=== PATIENT | male | born 1940 | race Caucasian/White ===

== ENCOUNTER → 2016-05-07 | Outpatient (CLI) | payer MEDICARE, OTHER ==
[~2016-05-07] MED LIST: ASPI81CH43 GT; CLOP75TA28 PO; PRAV20TA3 PO
== END | disposition home or self-care (01) ==
LOC: Rad HDHVI 08:04
PROVIDERS: ATTEND Internal Medicine Cardiovascular Disease
DX: I25.5 Ischemic cardiomyopathy (principal); I21.19 ST elevation (STEMI) myocardial infarction involving other coronary artery of inferior wall; R06.02 Shortness of breath
CPT/HCPCS: 93306

== ENCOUNTER → 2016-05-12 | Outpatient (CLI) | payer MEDICARE, OTHER ==
[~2016-05-12] MED LIST changes: +ADENOSINE 53 MG in GIVE UN-DILUTED 0 ML IV ONE; +ADENOSINE 90 MG/30 ML INJ IV ONE
== END | disposition home or self-care (01) ==
LOC: Rad HDHVI 07:56
PROVIDERS: ATTEND Internal Medicine Cardiovascular Disease
DX: I10 Essential (primary) hypertension (principal); I25.10 Atherosclerotic heart disease of native coronary artery without angina pectoris; I25.2 Old myocardial infarction; E78.00 Pure hypercholesterolemia, unspecified; R06.02 Shortness of breath; R42 Dizziness and giddiness
CPT/HCPCS: 78452; 93005; 96374; 96375; A9500; J0153

== ENCOUNTER → 2016-06-03 | Outpatient (CLI) | payer MEDICARE, OTHER ==
[~2016-06-03] VITALS: Ht 30.5 cm; Wt 0.5 kg
[~2016-06-03] MED LIST changes: -ADENOSINE 53 MG in GIVE UN-DILUTED 0 ML IV ONE; -ADENOSINE 90 MG/30 ML INJ IV ONE; +IOHEXOL 350 MG/ML 100ML IJ ONE; +SODIUM CHLORIDE 0.9% 250 ML IV SCH
[2016-06-03 10:35] VITALS: BP 118/76
[2016-06-03 12:00] VITALS: BP 124/81
== END | disposition home or self-care (01) ==
LOC: Rad HDHVI 09:44
PROVIDERS: ATTEND Internal Medicine Cardiovascular Disease
DX: R42 Dizziness and giddiness (principal); J44.9 Chronic obstructive pulmonary disease, unspecified; R06.02 Shortness of breath; I25.10 Atherosclerotic heart disease of native coronary artery without angina pectoris; Z87.448 Personal history of other diseases of urinary system
CPT/HCPCS: 71260; 96361; 96374; G0463; Q9967; 96360

== ENCOUNTER → 2017-02-24 | Outpatient (CLI) | payer MEDICARE ==
[~2017-02-24] MED LIST changes: +READI-CAT 2 (BARIUM SULF)(VANILLA SMOOTHIE) 450ML ONE; +SODIUM CHLORIDE 0.9% 1,000 ML IV SCH; -SODIUM CHLORIDE 0.9% 250 ML IV SCH
[2017-02-24 09:00] VITALS: BP 132/77
[2017-02-24 11:15] VITALS: BP 132/86
== END | disposition home or self-care (01) ==
LOC: Rad HDHVI 08:47
PROVIDERS: ATTEND Internal Medicine Cardiovascular Disease
DX: K44.9 Diaphragmatic hernia without obstruction or gangrene (principal); K57.30 Diverticulosis of large intestine without perforation or abscess without bleeding; J43.9 Emphysema, unspecified; K40.90 Unilateral inguinal hernia, without obstruction or gangrene, not specified as recurrent; I77.811 Abdominal aortic ectasia
CPT/HCPCS: 74177; 82565; 96374; G0463; Q9967

== ENCOUNTER → 2017-02-26 | Outpatient (CLI) | payer MEDICARE ==
[~2017-02-26] MED LIST changes: -SODIUM CHLORIDE 0.9% 1,000 ML IV SCH
[2017-02-26 08:25] VITALS: BP 116/72
[2017-02-26 09:20] VITALS: BP 115/82
== END | disposition home or self-care (01) ==
LOC: Rad HDHVI 08:16
PROVIDERS: ATTEND Internal Medicine Cardiovascular Disease
DX: K44.9 Diaphragmatic hernia without obstruction or gangrene (principal); K57.30 Diverticulosis of large intestine without perforation or abscess without bleeding; I77.811 Abdominal aortic ectasia
CPT/HCPCS: 74177; 82565; 96374; G0463; Q9967

== ENCOUNTER → 2017-03-06 | Outpatient (CLI) | payer MEDICARE ==
[~2017-03-06] MED LIST changes: +ADENOSINE 53 MG in GIVE UN-DILUTED 0 ML IV ONE; +ADENOSINE 90 MG/30 ML INJ IV ONE; -IOHEXOL 350 MG/ML 100ML IJ ONE; -READI-CAT 2 (BARIUM SULF)(VANILLA SMOOTHIE) 450ML ONE
[2017-03-06 12:17] LABS: Urine Blood Negative /uL (Negative); Urine Specific Gravity 1.011 (1.001-1.035)
[2017-03-06 12:21] LABS: Basophils # (auto) 0.1 uL; Basophils % (auto) 1.1 % (0.0-2.0); Eosinophils # (auto) 0.3 uL; Eosinophils % (auto) 5.2 % (0.0-7.0); Hematocrit 48.9 % (41.0-53.0); Hemoglobin 16.7 g/dL (13.5-17.5); Lymphocytes % (auto) 18.4 % (10.0-50.0); Mean Corpuscular Hemoglobin 33.7 pg (28.0-32.0); Mean Corpuscular Hgb Conc. 34.1 g/dL (32.0-36.0); Mean Corpuscular Volume 98.8 fL (80.0-100.0); Monocytes # (auto) 0.4 uL; Monocytes % (auto) 7.6 % (0.0-12.0); Neutrophils # (auto) 3.6 uL; Neutrophils % (auto) 67.7 % (37.0-80.0); Nucleated Red Blood Cells % 0.4 %; Platelet Count (auto) 201 10^3/uL (140-450); Red Blood Cells 4.95 10^6/uL (4.5-5.90); Red Cell Distribution Width 13.1 % (11.8-14.3); White Blood Cell 5.3 10^3/uL (4.4-10.8)
[2017-03-06 12:45] LABS: BUN/Creatinine Ratio 13.7; Bilirubin, Total 0.5 mg/dL (0.2-1.0); Calcium 8.7 mg/dL (8.5-10.1); Free T4 (Free Thyroxine) 0.94 ng/dL (0.89-1.76); Potassium 4.2 mmol/L (3.5-5.1); Total Protein 7.8 g/dL (6.4-8.2)
== END | disposition home or self-care (01) ==
LOC: Rad HDHVI 07:53
PROVIDERS: ATTEND Internal Medicine Cardiovascular Disease
DX: E78.00 Pure hypercholesterolemia, unspecified (principal); D64.9 Anemia, unspecified; I10 Essential (primary) hypertension; E03.9 Hypothyroidism, unspecified; E55.9 Vitamin D deficiency, unspecified; E11.9 Type 2 diabetes mellitus without complications; R53.81 Other malaise; R97.20 Elevated prostate specific antigen [PSA]; N39.0 Urinary tract infection, site not specified; D51.9 Vitamin B12 deficiency anemia, unspecified
CPT/HCPCS: 36415; 78452; 80053; 80061; 81003; 82306; 82607; 83036; 84403; 84439; 84443; 85025; 93005; 93306; 96374; 96375; A9500; J0153

== ENCOUNTER → 2018-03-26 | Outpatient (CLI) | payer MEDICARE ==
[~2018-03-26] MED LIST changes: -ADENOSINE 53 MG in GIVE UN-DILUTED 0 ML IV ONE; -ADENOSINE 90 MG/30 ML INJ IV ONE
== END | disposition home or self-care (01) ==
LOC: Rad HDHVI 13:16
PROVIDERS: ATTEND Internal Medicine
DX: I08.1 Rheumatic disorders of both mitral and tricuspid valves (principal); I10 Essential (primary) hypertension; I25.10 Atherosclerotic heart disease of native coronary artery without angina pectoris; J44.9 Chronic obstructive pulmonary disease, unspecified
CPT/HCPCS: 93306

== ENCOUNTER → 2018-04-07 | Outpatient (CLI) | payer MEDICARE ==
[~2018-04-07] VITALS: Ht 180.3 cm; Wt 63.0 kg
[~2018-04-07] MED LIST changes: +ADENOSINE 53 MG in GIVE UN-DILUTED 0 ML IV ONE; +ADENOSINE 90 MG/30 ML INJ IV ONE
== END | disposition home or self-care (01) ==
LOC: Rad HDHVI 11:54
PROVIDERS: ATTEND Internal Medicine Cardiovascular Disease
DX: I25.119 Atherosclerotic heart disease of native coronary artery with unspecified angina pectoris (principal); I10 Essential (primary) hypertension; E78.5 Hyperlipidemia, unspecified
CPT/HCPCS: 78452; 93005; 96374; 96375; A9500; J0153

== ENCOUNTER → 2018-06-07 | Outpatient (CLI) | payer MEDICARE ==
[~2018-06-07] MED LIST changes: -ADENOSINE 53 MG in GIVE UN-DILUTED 0 ML IV ONE; -ADENOSINE 90 MG/30 ML INJ IV ONE
[2018-06-07 12:31] LABS: Basophils # (auto) 0.1 uL; Basophils % (auto) 0.8 % (0.0-2.0); Eosinophils # (auto) 0.3 uL; Eosinophils % (auto) 4.6 % (0.0-7.0); Hematocrit 47.9 % (41.0-53.0); Lymphocytes # (auto) 0.8 uL; Lymphocytes % (auto) 13.7 % (10.0-50.0); Mean Corpuscular Hemoglobin 33.2 pg (28.0-32.0); Mean Corpuscular Hgb Conc. 33.4 g/dL (32.0-36.0); Mean Corpuscular Volume 99.1 fL (80.0-100.0); Monocytes # (auto) 0.4 uL; Monocytes % (auto) 7.3 % (0.0-12.0); Neutrophils # (auto) 4.4 uL; Neutrophils % (auto) 73.6 % (37.0-80.0); Nucleated Red Blood Cells % 0.3 %; Platelet Count (auto) 167 10^3/uL (140-450); Potassium 3.9 mmol/L (3.5-5.1); Red Blood Cells 4.83 10^6/uL (4.5-5.90); Red Cell Distribution Width 13.8 % (11.8-14.3)
[2018-06-07 12:36] LABS: Albumin 3.9 g/dL (3.4-5.0); Calcium 8.5 mg/dL (8.5-10.1)
[2018-06-07 12:42] LABS: BUN/Creatinine Ratio 14.5; Bilirubin, Total 0.6 mg/dL (0.2-1.0); Total Protein 7.5 g/dL (6.4-8.2)
== END | disposition home or self-care (01) ==
LOC: LAB 08:35
PROVIDERS: ATTEND Internal Medicine
DX: E03.9 Hypothyroidism, unspecified (principal); R97.0 Elevated carcinoembryonic antigen [CEA]; I10 Essential (primary) hypertension; D64.9 Anemia, unspecified
CPT/HCPCS: 36415; 80053; 82378; 84443; 85025

== ENCOUNTER 2022-03-06 10:18 | Emergency (ER) | payer MEDICARE ==
[~2022-03-06] VITALS: Ht 180.3 cm; Wt 61.1 kg
[2022-03-06 11:54] LABS: Urine Bacteria NONE SEEN /hpf (None Seen); Urine Blood Negative /uL (Negative); Urine Hyaline Cast FEW /lpf (0 - 2); Urine Mucus FEW (None Seen); Urine Specific Gravity 1.025 (1.001-1.035); Urine WBC 8 /hpf (0 - 3)
[2022-03-06 11:56] LABS: Basophils # (auto) 0.1 10 ^3/uL (0-0.2); Basophils % (auto) 1.1 % (0.0-2.0); Eosinophils # (auto) 0.2 10 ^3/uL (0-0.8); Eosinophils % (auto) 4.1 % (0.0-7.0); Hematocrit 43.9 % (41.0-53.0); Hemoglobin 14.5 g/dL (13.5-17.5); Lymphocytes # (auto) 0.7 10 ^3/uL (0.4-5.4); Lymphocytes % (auto) 12.3 % (10.0-50.0); Mean Corpuscular Hemoglobin 32.3 pg (28.0-32.0); Mean Corpuscular Volume 97.8 fL (80.0-100.0); Monocytes # (auto) 0.6 10 ^3/uL (0-1.3); Monocytes % (auto) 10.4 % (0.0-12.0); Neutrophils # (auto) 4.2 10 ^3/uL (1.6-8.6); Neutrophils % (auto) 72.1 % (37.0-80.0); Nucleated Red Blood Cells % 0.1 %; Red Blood Cells 4.48 10^6/uL (4.5-5.90); Red Cell Distribution Width 12.5 % (11.8-14.3); White Blood Cell 5.8 10^3/uL (4.4-10.8)
[2022-03-06 12:19] LABS: Albumin 3.8 g/dL (3.4-5.0); Potassium 4.2 mmol/L (3.5-5.1)
[2022-03-06 12:21] LABS: Bilirubin, Total 0.6 mg/dL (0.2-1.0); Total Protein 7.2 g/dL (6.4-8.2)
[2022-03-06] MEDS ORDERED: SUCR1TAB22 OR (16:05)
[2022-03-06 17:22] VITALS: BP 100/76
== END 2022-03-06 17:53 | disposition home or self-care (01) ==
LOC: ER 10:18
DX: R10.84 Generalized abdominal pain (principal); R93.89 Abnormal findings on diagnostic imaging of other specified body structures; J44.9 Chronic obstructive pulmonary disease, unspecified; Z79.899 Other long term (current) drug therapy; Z87.442 Personal history of urinary calculi; Z98.890 Other specified postprocedural states
CPT/HCPCS: 36415; 74176; 80053; 81001; 83605; 83690; 84484; 85025; 93005

== ENCOUNTER 2023-02-12 13:50 | Inpatient (IN) | payer MEDICARE ==
[~2023-02-12] VITALS: Ht 175.3 cm; Wt 46.6 kg
[~2023-02-12 13:50] MED LIST changes: +SUCR1TAB22 OR
[2023-02-12] MEDS ORDERED: IPRATROPIUM BROM 0.5 MG/2.5ML INH SOL NEB ONE (14:15)
[2023-02-12] MEDS ORDERED: ALBUTEROL SULF 2.5 MG/0.5ML(0.5%) NEB SOLN NEB ONE (14:15)
[2023-02-12] MEDS ORDERED: cefTRIAXone 1GM/50ML D5W 50 ML IV ONE (14:15)
[2023-02-12 15:12] LABS: Basophils # (auto) 0.1 10 ^3/uL (0-0.2); Basophils % (auto) 1.1 % (0.0-2.0); Eosinophils # (auto) 0 10 ^3/uL (0-0.8); Eosinophils % (auto) 0.2 % (0.0-7.0); Hematocrit 49.7 % (41.0-53.0); Hemoglobin 16.8 g/dL (13.5-17.5); Lymphocytes # (auto) 0.5 10 ^3/uL (0.4-5.4); Mean Corpuscular Hemoglobin 33.7 pg (28.0-32.0); Mean Corpuscular Hgb Conc. 33.7 g/dL (32.0-36.0); Mean Corpuscular Volume 99.9 fL (80.0-100.0); Monocytes # (auto) 0.5 10 ^3/uL (0-1.3); Monocytes % (auto) 8.4 % (0.0-12.0); Neutrophils # (auto) 5.4 10 ^3/uL (1.6-8.6); Neutrophils % (auto) 83.3 % (37.0-80.0); Nucleated Red Blood Cells % 0.6 %; Red Blood Cells 4.98 10^6/uL (4.5-5.90); Red Cell Distribution Width 13.2 % (11.8-14.3); White Blood Cell 6.5 10^3/uL (4.4-10.8)
[2023-02-12 15:14] LABS: INR 1.07 (0.9-1.15); Prothrombin Time 11.2 sec (9.3-11.8)
[2023-02-12 15:38] LABS: Lactic Acid w/Reflex 2.8 mmol/L (0.4-2.0)
[2023-02-12 16:22] LABS: Alkaline Phosphatase 104 U/L (46-116); Glucose 122 mg/dL (74-106)
[2023-02-12 16:23] LABS: BUN/Creatinine Ratio 28.4 (10.0-20.0); Blood Urea Nitrogen 40 mg/dL (9-23); Chloride 103 mmol/L (98-107); Sodium 137 mmol/L (136-145)
[2023-02-12 16:24] LABS: Albumin 4.5 g/dL (3.2-4.8); Anion Gap 8 (5-15); Aspartate Aminotransferase 47 U/L (13-40); Bilirubin, Total 0.5 mg/dL (0.2-1.0); Calcium 9.2 mg/dL (8.7-10.4); Carbon Dioxide 26 mmol/L (20-30)
[2023-02-12 16:26] VITALS: RESP 15; O2SAT 100
[2023-02-12 16:27] LABS: Potassium 5.6 mmol/L (3.5-5.1)
[2023-02-12 16:36] LABS: Alanine Aminotransferase 37 U/L (7-40)
[2023-02-12] MEDS ORDERED: ACETAMINOPHEN 325 MG TAB PO PRN (17:00)
[2023-02-12] MEDS ORDERED: NITROGLYCERIN 0.4 MG SL TAB SL PRN (17:00)
[2023-02-12] MEDS ORDERED: MORPHINE SULFATE INJ 2 MG/ml SYRG IV PRN (17:00)
[2023-02-12] MEDS ORDERED: DOCUSATE SOD 100 MG CAP PO PRN (17:00)
[2023-02-12] MEDS ORDERED: ONDANSETRON HCL 4 MG/2 ML VIAL IV PRN (17:00)
[2023-02-12] MEDS ORDERED: CLOP75TA70 PO (17:29)
[2023-02-12] MEDS ORDERED: ATOR40TA52 PO (17:29)
[2023-02-12] MEDS ORDERED: CITA-77 PO (17:29)
[2023-02-12] MEDS ORDERED: SODIUM ZIRCONIUM CYCL 10 GM PAK PO ONE (17:30)
[2023-02-12 19:30] VITALS: PULSE 110; RESP 30; O2SAT 97
[2023-02-12] MEDS: SODIUM CHLORIDE 0.9% 1,000 ML IV SCH (20:45)
[2023-02-12 22:16] LABS: Urine Bacteria NONE SEEN /hpf (None Seen); Urine Blood Negative /uL (Negative); Urine Clarity HAZY (Clear); Urine Color Yellow (Yellow); Urine Hyaline Cast FEW /lpf (0 - 2); Urine Mucus FEW (None Seen); Urine Protein, UAD TRACE (Negative); Urine Specific Gravity 1.022 (1.001-1.035); Urine Urobilinogen Normal (Negative); Urine WBC 128 /hpf (0 - 3)
[2023-02-12 22:45] LABS: COVID19 ANTIGEN SOFIA FIA NEGATIVE (NEGATIVE)
[2023-02-12 22:46] LABS: Rapid Influenza A Negative (Negative); Rapid Influenza B Negative (Negative)
[2023-02-13] VITALS (11 sets, daily range): BP systolic 104–130; BP diastolic 63–80; PULSE 51–102; RESP 16–22; TEMP 97.5–98.1; O2SAT 87–99
[2023-02-13] MEDS: SODIUM CHLORIDE 0.9% 1,000 ML IV SCH ×2 (01:05→06:46)
[2023-02-13 05:32] LABS: Basophils # (auto) 0 10 ^3/uL (0-0.2); Eosinophils # (auto) 0 10 ^3/uL (0-0.8); Lymphocytes # (auto) 0.4 10 ^3/uL (0.4-5.4); Monocytes # (auto) 0.8 10 ^3/uL (0-1.3); Nucleated Red Blood Cells % 0.1 %
[2023-02-13 05:36] LABS: Basophils % (auto) 0.4 % (0.0-2.0); Hemoglobin 14.6 g/dL (13.5-17.5); Lymphocytes % (auto) 7.5 % (10.0-50.0); Mean Corpuscular Hemoglobin 33.8 pg (28.0-32.0); Mean Corpuscular Hgb Conc. 33.3 g/dL (32.0-36.0); Mean Corpuscular Volume 101.6 fL (80.0-100.0); Monocytes % (auto) 13.7 % (0.0-12.0); Neutrophils # (auto) 4.3 10 ^3/uL (1.6-8.6); Neutrophils % (auto) 78.4 % (37.0-80.0); Red Blood Cells 4.33 10^6/uL (4.5-5.90); Red Cell Distribution Width 13.6 % (11.8-14.3); White Blood Cell 5.5 10^3/uL (4.4-10.8)
[2023-02-13 05:50] LABS: Alanine Aminotransferase 34 U/L (7-40); Alkaline Phosphatase 87 U/L (46-116); Anion Gap 12 (5-15); Aspartate Aminotransferase 49 U/L (13-40); BUN/Creatinine Ratio 20.5 (10.0-20.0); Calcium 8.9 mg/dL (8.5-10.1); Carbon Dioxide 21 mmol/L (20-30); Chloride 105 mmol/L (98-107); Glucose 84 mg/dL (74-106); Potassium 4.8 mmol/L (3.5-5.1); Sodium 138 mmol/L (136-145)
[2023-02-13 05:51] LABS: Albumin 3.9 g/dL (3.2-4.8); Bilirubin, Total 0.5 mg/dL (0.2-1.0); Total Protein 6.4 g/dL (5.7-8.2)
[2023-02-13 06:13] LABS: Blood Urea Nitrogen 25 mg/dL (9-23)
[2023-02-13] MEDS: cefTRIAXone 1GM/50ML D5W 50 ML IV SCH (09:06)
[2023-02-13] MEDS: NICOTINE 21MG/24 HR TOPICAL PATCH TD SCH (10:00)
[2023-02-13] MEDS: CLOPIDOGREL BISULFATE 75 MG TAB PO SCH (10:35)
[2023-02-13] MEDS: ASPirin 81 mg TAB GT SCH (10:35)
[2023-02-13] MEDS: AZITHROMYCIN 500MG/ 250ML 250 ML IV SCH (10:35)
[2023-02-13] MEDS: CITALOPRAM HYDROBR 20 MG TAB PO SCH (10:35)
[2023-02-13] MEDS: ATORVASTATIN 20 MG TAB PO SCH (10:35)
[2023-02-13] MEDS ORDERED: methylPREDNISolone SOD SUCC 40 MG/ML VL IV ONE (14:30)
[2023-02-13] MEDS: PANTOPRAZOLE 40 MG TAB PO SCH (15:42)
[2023-02-13] MEDS: IPRATROPIUM BROM 0.5 MG/2.5ML INH SOL NEB SCH (18:08)
[2023-02-13] MEDS: ALBUTEROL SULF 2.5 MG/0.5ML(0.5%) NEB SOLN NEB SCH (18:08)
[2023-02-13] MEDS: methylPREDNISolone SOD SUCC 40 MG/ML VL IV SCH (21:11)
[2023-02-14] VITALS (14 sets, daily range): BP systolic 90–109; BP diastolic 46–64; PULSE 62–96; RESP 17–20; TEMP 97.5–98.4; O2SAT 88–100
[2023-02-14 05:16] LABS: Basophils # (auto) 0 10 ^3/uL (0-0.2); Basophils % (auto) 0.1 % (0.0-2.0); Eosinophils # (auto) 0 10 ^3/uL (0-0.8); Hematocrit 39.5 % (41.0-53.0); Hemoglobin 13.3 g/dL (13.5-17.5); Lymphocytes # (auto) 0.2 10 ^3/uL (0.4-5.4); Lymphocytes % (auto) 12.1 % (10.0-50.0); Mean Corpuscular Hgb Conc. 33.7 g/dL (32.0-36.0); Mean Corpuscular Volume 100.9 fL (80.0-100.0); Monocytes # (auto) 0.1 10 ^3/uL (0-1.3); Monocytes % (auto) 3.5 % (0.0-12.0); Neutrophils # (auto) 1.6 10 ^3/uL (1.6-8.6); Neutrophils % (auto) 84.3 % (37.0-80.0); Nucleated Red Blood Cells % 0.2 %; Red Blood Cells 3.92 10^6/uL (4.5-5.90)
[2023-02-14 05:31] LABS: Calcium 8.5 mg/dL (8.7-10.4); Chloride 106 mmol/L (98-107); Potassium 5.1 mmol/L (3.5-5.1); Sodium 136 mmol/L (136-145)
[2023-02-14 05:32] LABS: Anion Gap 3 (5-15); Carbon Dioxide 27 mmol/L (20-30)
[2023-02-14 05:37] LABS: Blood Urea Nitrogen 27 mg/dL (9-23); Glucose 132 mg/dL (74-106)
[2023-02-14] MEDS: IPRATROPIUM BROM 0.5 MG/2.5ML INH SOL NEB SCH ×3 (06:22→18:21)
[2023-02-14] MEDS: ALBUTEROL SULF 2.5 MG/0.5ML(0.5%) NEB SOLN NEB SCH ×3 (06:22→18:21)
[2023-02-14] MEDS: cefTRIAXone 1GM/50ML D5W 50 ML IV SCH (08:51)
[2023-02-14] MEDS: NICOTINE 21MG/24 HR TOPICAL PATCH TD SCH (10:00)
[2023-02-14] MEDS: ATORVASTATIN 20 MG TAB PO SCH (10:17)
[2023-02-14] MEDS: ASPirin 81 mg TAB GT SCH (10:17)
[2023-02-14] MEDS: methylPREDNISolone SOD SUCC 40 MG/ML VL IV SCH ×2 (10:18→21:43)
[2023-02-14] MEDS: CITALOPRAM HYDROBR 20 MG TAB PO SCH (10:18)
[2023-02-14] MEDS: PANTOPRAZOLE 40 MG TAB PO SCH (10:18)
[2023-02-14] MEDS: CLOPIDOGREL BISULFATE 75 MG TAB PO SCH (10:18)
[2023-02-14] MEDS: AZITHROMYCIN 500MG/ 250ML 250 ML IV SCH (10:18)
[2023-02-14 14:01] LABS: Base Excess -5.9 mmol/L (-2.0-2.0)
[2023-02-15] VITALS (13 sets, daily range): BP systolic 105–151; BP diastolic 55–84; PULSE 8–100; RESP 16–20; TEMP 97.5–98.4; O2SAT 92–100
[2023-02-15 05:53] LABS: Anion Gap 4 (5-15); Carbon Dioxide 27 mmol/L (20-30); Chloride 103 mmol/L (98-107); Potassium 5.5 mmol/L (3.5-5.1); Sodium 134 mmol/L (136-145)
[2023-02-15 05:59] LABS: BUN/Creatinine Ratio 28.4 (10.0-20.0); Blood Urea Nitrogen 31 mg/dL (9-23); Glucose 144 mg/dL (74-106)
[2023-02-15] MEDS: IPRATROPIUM BROM 0.5 MG/2.5ML INH SOL NEB SCH ×3 (07:04→19:05)
[2023-02-15] MEDS: ALBUTEROL SULF 2.5 MG/0.5ML(0.5%) NEB SOLN NEB SCH ×3 (07:05→19:05)
[2023-02-15] MEDS: cefTRIAXone 1GM/50ML D5W 50 ML IV SCH (09:01)
[2023-02-15] MEDS: NICOTINE 21MG/24 HR TOPICAL PATCH TD SCH (10:00)
[2023-02-15] MEDS: ASPirin 81 mg TAB GT SCH (10:12)
[2023-02-15] MEDS: AZITHROMYCIN 500MG/ 250ML 250 ML IV SCH (10:12)
[2023-02-15] MEDS: PANTOPRAZOLE 40 MG TAB PO SCH (10:12)
[2023-02-15] MEDS: CITALOPRAM HYDROBR 20 MG TAB PO SCH (10:12)
[2023-02-15] MEDS: ATORVASTATIN 20 MG TAB PO SCH (10:12)
[2023-02-15] MEDS: CLOPIDOGREL BISULFATE 75 MG TAB PO SCH (10:12)
[2023-02-15] MEDS: methylPREDNISolone SOD SUCC 40 MG/ML VL IV SCH ×2 (10:12→22:22)
[2023-02-15 14:31] LABS: Base Excess -3.4 mmol/L (-2.0-2.0)
[2023-02-15] MEDS ORDERED: SODIUM ZIRCONIUM CYCL 10 GM PAK PO ONE (20:00)
[2023-02-16] VITALS (16 sets, daily range): BP systolic 109–123; BP diastolic 54–80; PULSE 68–102; RESP 14–20; TEMP 97.4–98; O2SAT 92–100
[2023-02-16 05:19] LABS: Basophils # (auto) 0 10 ^3/uL (0-0.2); Basophils % (auto) 0.1 % (0.0-2.0); Eosinophils # (auto) 0 10 ^3/uL (0-0.8); Hemoglobin 13.2 g/dL (13.5-17.5); Lymphocytes # (auto) 0.2 10 ^3/uL (0.4-5.4); Lymphocytes % (auto) 4.9 % (10.0-50.0); Mean Corpuscular Hemoglobin 33.8 pg (28.0-32.0); Mean Corpuscular Hgb Conc. 33.9 g/dL (32.0-36.0); Mean Corpuscular Volume 99.7 fL (80.0-100.0); Monocytes # (auto) 0.1 10 ^3/uL (0-1.3); Monocytes % (auto) 2.5 % (0.0-12.0); Neutrophils # (auto) 4.7 10 ^3/uL (1.6-8.6); Neutrophils % (auto) 92.5 % (37.0-80.0); Red Blood Cells 3.91 10^6/uL (4.5-5.90); Red Cell Distribution Width 13.3 % (11.8-14.3)
[2023-02-16] MEDS: ALBUTEROL SULF 2.5 MG/0.5ML(0.5%) NEB SOLN NEB SCH ×3 (06:07→18:41)
[2023-02-16] MEDS: IPRATROPIUM BROM 0.5 MG/2.5ML INH SOL NEB SCH ×3 (06:07→18:41)
[2023-02-16 06:15] LABS: Anion Gap 5 (5-15); BUN/Creatinine Ratio 24.5 (10.0-20.0); Blood Urea Nitrogen 27 mg/dL (9-23); Calcium 8.6 mg/dL (8.7-10.4); Carbon Dioxide 29 mmol/L (20-30); Chloride 100 mmol/L (98-107); Glucose 140 mg/dL (74-106); Potassium 4.8 mmol/L (3.5-5.1); Sodium 134 mmol/L (136-145)
[2023-02-16] MEDS: cefTRIAXone 1GM/50ML D5W 50 ML IV SCH ×2 (09:03→15:15)
[2023-02-16] MEDS: AZITHROMYCIN 250 MG TAB PO SCH (09:06)
[2023-02-16] MEDS: CITALOPRAM HYDROBR 20 MG TAB PO SCH (09:06)
[2023-02-16] MEDS: methylPREDNISolone SOD SUCC 40 MG/ML VL IV SCH (09:06)
[2023-02-16] MEDS: CLOPIDOGREL BISULFATE 75 MG TAB PO SCH (09:06)
[2023-02-16] MEDS: NICOTINE 21MG/24 HR TOPICAL PATCH TD SCH (09:06)
[2023-02-16] MEDS: PANTOPRAZOLE 40 MG TAB PO SCH (09:06)
[2023-02-16] MEDS: ASPirin 81 mg TAB GT SCH (09:06)
[2023-02-16] MEDS: ATORVASTATIN 20 MG TAB PO SCH (09:06)
[2023-02-17] VITALS (9 sets, daily range): BP systolic 102–134; BP diastolic 62–65; PULSE 64–89; RESP 16–18; TEMP 96.9–97.5; O2SAT 92–100
[2023-02-17] MEDS: IPRATROPIUM BROM 0.5 MG/2.5ML INH SOL NEB SCH ×2 (06:27→11:38)
[2023-02-17] MEDS: ALBUTEROL SULF 2.5 MG/0.5ML(0.5%) NEB SOLN NEB SCH ×2 (06:27→11:38)
[2023-02-17] MEDS ORDERED: methylPREDNISolone SOD SUCC 40 MG/ML VL IV SCH (07:00)
[2023-02-17] MEDS: ASPirin 81 mg TAB GT SCH (08:35)
[2023-02-17] MEDS: cefTRIAXone 1GM/50ML D5W 50 ML IV SCH (08:35)
[2023-02-17] MEDS: AZITHROMYCIN 250 MG TAB PO SCH (08:35)
[2023-02-17] MEDS: CITALOPRAM HYDROBR 20 MG TAB PO SCH (08:35)
[2023-02-17] MEDS: PANTOPRAZOLE 40 MG TAB PO SCH (08:35)
[2023-02-17] MEDS: CLOPIDOGREL BISULFATE 75 MG TAB PO SCH (08:35)
[2023-02-17] MEDS: NICOTINE 21MG/24 HR TOPICAL PATCH TD SCH (08:36)
[2023-02-17] MEDS: ATORVASTATIN 20 MG TAB PO SCH (08:36)
[2023-02-17] MEDS ORDERED: PRED20TA2 PO (10:35)
[2023-02-17] MEDS ORDERED: AZIT-43 PO (10:35)
[2023-02-17] MEDS ORDERED: ALBUAER3 IN (10:35)
== END 2023-02-17 13:57 | disposition home or self-care (01) | DRG 177 ==
LOC: ER 13:50 → EDBD 13:50 → TELE 16:59 → TELE-WESTW 02-13 02:34
PROVIDERS: ADMIT Nurse Practitioner Family; ATTEND Internal Medicine
PROC: 5A09357 Assistance with Respiratory Ventilation, Less than 24 Consecutive Hours, Continuous Positive Airway Pressure (ICD-10-PCS; principal; 2023-02-12)
DX: J15.69 Pneumonia due to other Gram-negative bacteria (principal); J96.21 Acute and chronic respiratory failure with hypoxia; E87.20 Acidosis, unspecified; J44.0 Chronic obstructive pulmonary disease with (acute) lower respiratory infection; J44.1 Chronic obstructive pulmonary disease with (acute) exacerbation; N17.9 Acute kidney failure, unspecified; N39.0 Urinary tract infection, site not specified; Z20.822 Contact with and (suspected) exposure to COVID-19; E78.5 Hyperlipidemia, unspecified; N18.9 Chronic kidney disease, unspecified; I25.10 Atherosclerotic heart disease of native coronary artery without angina pectoris; F17.210 Nicotine dependence, cigarettes, uncomplicated; E87.5 Hyperkalemia; Z95.5 Presence of coronary angioplasty implant and graft; Z87.442 Personal history of urinary calculi; I25.2 Old myocardial infarction; Z90.5 Acquired absence of kidney; Z85.528 Personal history of other malignant neoplasm of kidney; J15.9 Unspecified bacterial pneumonia
CPT/HCPCS: 36415; 36600; 71045; 76775; 80048; 80053; 81001; 82607; 82805; 83605; 83735; 83880; 84132; 84443; 84484; 85025; 85610; 85730; 87040; 87086; 87426; 87804; 93005; 93306; 94640; 96365; 97110; 97116; 97163; 97530; 99291; G0378

== ENCOUNTER → 2023-03-23 | Outpatient (CLI) | payer MEDICARE ==
[~2023-03-23] MED LIST changes: +ALBUAER3 IN; +ATOR40TA52 PO; +AZIT-43 PO; +CITA-77 PO; +CLOP75TA70 PO; +PRED20TA2 PO
== END | disposition home or self-care (01) ==
LOC: Rad HDHVI 15:40
PROVIDERS: ATTEND Internal Medicine Cardiovascular Disease
DX: I08.1 Rheumatic disorders of both mitral and tricuspid valves (principal); I10 Essential (primary) hypertension
CPT/HCPCS: 93306

== ENCOUNTER → 2023-03-30 | Outpatient (CLI) | payer MEDICARE ==
[~2023-03-30] VITALS: Ht 180.3 cm; Wt 46.7 kg
[~2023-03-30] MED LIST changes: +ADENOSINE 39 MG in GIVE UN-DILUTED 0 ML IV ONE; +ADENOSINE 90 MG/30 ML INJ IV ONE
== END | disposition home or self-care (01) ==
LOC: Rad HDHVI 09:09
PROVIDERS: ATTEND Internal Medicine Cardiovascular Disease
DX: I25.10 Atherosclerotic heart disease of native coronary artery without angina pectoris (principal); J44.1 Chronic obstructive pulmonary disease with (acute) exacerbation; I71.43 Infrarenal abdominal aortic aneurysm, without rupture; J43.9 Emphysema, unspecified; R06.02 Shortness of breath; I25.2 Old myocardial infarction; E78.5 Hyperlipidemia, unspecified; F17.210 Nicotine dependence, cigarettes, uncomplicated
CPT/HCPCS: 78452; 93005; 96374; 96375; A9500; J0153

== ENCOUNTER 2023-06-12 03:04 | Emergency (ER) | payer MEDICARE ==
[~2023-06-12] VITALS: Ht 180.3 cm; Wt 47.7 kg
[~2023-06-12 03:04] MED LIST changes: -ADENOSINE 39 MG in GIVE UN-DILUTED 0 ML IV ONE; -ADENOSINE 90 MG/30 ML INJ IV ONE; -SUCR1TAB22 OR; +SUCR1TAB31 OR
[2023-06-12 04:56] LABS: Urine Bacteria None Seen /hpf (None Seen)
[2023-06-12 05:45] LABS: Urine Blood 3+ /uL (Negative); Urine Clarity Ex.Turbid (Clear); Urine Color Dark-Brown (Yellow); Urine Protein, UAD 1+ (Negative); Urine Specific Gravity 1.018 (1.001-1.035); Urine Urobilinogen Normal (Negative); Urine WBC 1173 /hpf (0 - 3); Urine WBC Clumps PRESENT /hpf (None Seen)
[2023-06-12 05:48] LABS: Basophils # (auto) 0.1 10 ^3/uL (0-0.2); Eosinophils # (auto) 0.2 10 ^3/uL (0-0.8); Mean Corpuscular Volume 101.6 fL (80.0-100.0); Nucleated Red Blood Cells % 0.1 %; Red Cell Distribution Width 13.3 % (11.8-14.3)
[2023-06-12] MEDS ORDERED: CEFU500T43 PO (05:50)
[2023-06-12 05:51] LABS: Eosinophils % (auto) 2.9 % (0.0-7.0); Hematocrit 43.5 % (41.0-53.0); Hemoglobin 14.9 g/dL (13.5-17.5); Lymphocytes % (auto) 13.8 % (10.0-50.0); Mean Corpuscular Hemoglobin 34.7 pg (28.0-32.0); Mean Corpuscular Hgb Conc. 34.2 g/dL (32.0-36.0); Monocytes # (auto) 0.6 10 ^3/uL (0-1.3); Monocytes % (auto) 7.6 % (0.0-12.0); Neutrophils # (auto) 5.4 10 ^3/uL (1.6-8.6); Neutrophils % (auto) 74.7 % (37.0-80.0); Red Blood Cells 4.28 10^6/uL (4.5-5.90); White Blood Cell 7.2 10^3/uL (4.4-10.8)
[2023-06-12 06:10] LABS: Alanine Aminotransferase 23 U/L (7-40); Albumin 4.2 g/dL (3.2-4.8); Alkaline Phosphatase 87 U/L (46-116); Anion Gap 6 (5-15); Aspartate Aminotransferase 29 U/L (13-40); BUN/Creatinine Ratio 14.8 (10.0-20.0); Bilirubin, Total 0.5 mg/dL (0.2-1.0); Blood Urea Nitrogen 16 mg/dL (9-23); Calcium 9.1 mg/dL (8.5-10.1); Carbon Dioxide 27 mmol/L (20-30); Chloride 106 mmol/L (98-107); Glucose 105 mg/dL (74-106); Potassium 4.1 mmol/L (3.5-5.1); Sodium 139 mmol/L (136-145); Total Protein 6.5 g/dL (5.7-8.2)
[2023-06-12 06:54] VITALS: BP 102/63; PULSE 76; RESP 16; TEMP 98.6; O2SAT 93
== END 2023-06-12 07:09 | disposition home or self-care (01) ==
LOC: ER 03:04
DX: N39.0 Urinary tract infection, site not specified (principal); R31.0 Gross hematuria; J44.9 Chronic obstructive pulmonary disease, unspecified; N18.9 Chronic kidney disease, unspecified; E78.5 Hyperlipidemia, unspecified; I25.2 Old myocardial infarction; Z87.442 Personal history of urinary calculi; Z98.61 Coronary angioplasty status; Z85.528 Personal history of other malignant neoplasm of kidney; Z79.899 Other long term (current) drug therapy
CPT/HCPCS: 36415; 80053; 81001; 85025

== ENCOUNTER → 2023-08-31 | Outpatient (CLI) | payer MEDICARE ==
[~2023-08-31] MED LIST changes: +CEFU500T43 PO
[2023-08-31 08:22] LABS: Urine Bacteria None Seen /hpf (None Seen)
[2023-08-31 08:30] LABS: Urine Blood Negative /uL (Negative); Urine Clarity Clear (Clear); Urine Color Light-Yellow (Yellow); Urine Protein, UAD Negative (Negative); Urine Specific Gravity 1.016 (1.001-1.035); Urine Urobilinogen Normal (Negative); Urine WBC <1 /hpf (0 - 3)
[2023-08-31 08:47] LABS: Basophils # (auto) 0.1 10 ^3/uL (0-0.2); Eosinophils # (auto) 0.1 10 ^3/uL (0-0.8); Hemoglobin 15.8 g/dL (13.5-17.5); Lymphocytes # (auto) 1.2 10 ^3/uL (0.4-5.4)
[2023-08-31 08:59] LABS: Alanine Aminotransferase 24 U/L (7-40); Alkaline Phosphatase 84 U/L (46-116); Anion Gap 7 (5-15); BUN/Creatinine Ratio 16.5 (10.0-20.0); Basophils % (auto) 1.3 % (0.0-2.0); Blood Urea Nitrogen 16 mg/dL (9-23); Calcium 9.1 mg/dL (8.7-10.4); Carbon Dioxide 25 mmol/L (20-30); Chloride 107 mmol/L (98-107); Eosinophils % (auto) 1.7 % (0.0-7.0); Glucose 116 mg/dL (74-106); Hematocrit 45.9 % (41.0-53.0); LDL Cholesterol 111 mg/dL (< 100); Lymphocytes % (auto) 14.3 % (10.0-50.0); Mean Corpuscular Hemoglobin 34.9 pg (28.0-32.0); Mean Corpuscular Hgb Conc. 34.4 g/dL (32.0-36.0); Mean Corpuscular Volume 101.6 fL (80.0-100.0); Monocytes # (auto) 0.5 10 ^3/uL (0-1.3); Monocytes % (auto) 6.4 % (0.0-12.0); Neutrophils # (auto) 6.4 10 ^3/uL (1.6-8.6); Neutrophils % (auto) 76.3 % (37.0-80.0); Potassium 4.2 mmol/L (3.5-5.1); Red Blood Cells 4.52 10^6/uL (4.5-5.90); Red Cell Distribution Width 14.3 % (11.8-14.3); Sodium 139 mmol/L (136-145); Triglycerides 92 mg/dL (< 150); White Blood Cell 8.4 10^3/uL (4.4-10.8)
[2023-08-31 09:00] LABS: Albumin 4.1 g/dL (3.2-4.8); Aspartate Aminotransferase 26 U/L (13-40); Bilirubin, Direct 0.1 mg/dL (<0.3); Bilirubin, Total 0.6 mg/dL (0.2-1.0); Cholesterol 198 mg/dL (< 200); HDL Cholesterol 81 mg/dL (40-59); Total Protein 6.7 g/dL (5.7-8.2)
[2023-08-31 09:13] LABS: Prostate Specific Antigen 1.51 ng/mL (0.0-4.0)
[2023-08-31 09:21] LABS: Free T4 (Free Thyroxine) 1.18 ng/dL (0.89-1.76)
== END | disposition home or self-care (01) ==
LOC: LAB 08:03
PROVIDERS: ATTEND Internal Medicine Cardiovascular Disease
DX: J44.9 Chronic obstructive pulmonary disease, unspecified (principal); N39.0 Urinary tract infection, site not specified; R31.9 Hematuria, unspecified; E78.5 Hyperlipidemia, unspecified; Z79.899 Other long term (current) drug therapy
CPT/HCPCS: 36415; 80053; 80061; 80076; 81001; 83036; 84153; 84403; 84439; 84443; 85025; 87086

== ENCOUNTER 2024-01-26 21:16 | Inpatient (IN) | payer MEDICARE ==
[~2024-01-26] VITALS: Ht 180.3 cm; Wt 97.0 kg
[~2024-01-26 21:16] MED LIST changes: +ALBU108A5 IN; +LISI10TA34 PO
--- NOTE | 2024-01-26 21:31 | ED.PDOC ---
SOB-HPI HPI Comments 83-year-old male with PMHx COPD brought in by EMS presents with a chief complaint of SOB with associated wheezing. Patient was having an increased work of breathing and upon arrival EMS reports that patient was sating at 81% on room air. Patient was then placed on CPAP by EMS en route to ER. Patient is denying any active chest pain at this time. Patient is alert and able to communicate through the mask. No other symptoms or modifying factors present at this time. Time Seen by MD: 21:17 Primary Care Provider: UNKNOWN Reviewed notes: Medications, Allergies Information Source: Emergency Med Personnel Mode of Arrival: EMS Severity: Moderate Timing: Minutes Duration: Since onset Context: Spontaneous Onset PE Risk Factors: None History of: COPD Prehospital treatment: C-Pap Associated Signs and Symptoms: Wheeze Past Medical History PAST MEDICAL HISTORY: Cancer, CKF, COPD, High Lipids, Kidney Stones, [place], UTI'S Surgical History: Hernia Repair, PTCA Family History Family History: Unobtainable Social History Smoker: Non-Smoker Alcohol: Denies ETOH Use Drugs: Denies Drug Use Lives In: Home Constitutional: denies: chills, diaphoresis, fatigue, fever, malaise, sweats, weakness, others EENTM: denies: blurred vision, double vision, ear bleeding, ear discharge, ear drainage, ear pain, ear ringing, eye pain, eye redness, hearing loss, mouth pain, mouth swelling, nasal discharge, nose bleeding, nose congestion, nose pain, photophobia, tearing, throat pain, throat swelling, voice changes, others Respiratory: reports: shortness of breath, wheezing; denies: cough, hemoptysis, orthopnea, SOB at rest, SOB with excertion, stridor, others Cardiovascular: denies: chest pain, dizzy spells, diaphoresis, Dyspnea on exertion, edema, irregular heart beat, left arm pain, lightheadedness, palpitations, PND, syncope, others Gastrointestinal: denies: abdomen distended, abdominal pain, blood streaked bowels, constipated, diarrhea, dysphagia, difficulty swallowing, hematemesis, melena, nausea, poor appetite, poor fluid intake, rectal bleeding, rectal pain, vomiting, others Genitourinary: denies: burning, dysuria, flank pain, frequency, hematuria, incontinence, penile discharge, penile sore, pain, testicle pain, testicle swelling, urgency, others Neurological: denies: dizziness, fainting, headache, left sided numbness, left sided weakness, numbness, paresthesia, pre-existing deficit, right sided numbness, right sided weakness, seizure, speech problems, tingling, tremors, weakness, others Musculoskeletal: denies: back pain, gout, joint pain, joint swelling, muscle pain, muscle stiffness, neck pain, others Integumetry: denies: bruises, change in color, change in hair/nails, dryness, laceration, lesions, lumps, rash, wounds, others Allergic/Immunocompromised: denies: Difficulty Healing, Frequent Infections, Hives, Itching, others Hematologic/Lymphatic: denies: anemia, blood clots, easy bleeding, easy bruising, swollen glands, others Endocrine: denies: excessive hunger, excessive sweating, excessive thirst, excessive urination, flushing, intolerance to cold, intolerance to heat, unexplained weight gain, unexplained weight loss, others Psychiatric: denies: anxiety, bipolar disorder, depression, hopeless, panic disorder, schizophrenia, sleepless, suicidal, others All Other Systems: Reviewed and Negative Physical Exam General Appearance: Moderate Distress, Thin HEENT: NOT DONE Neck: NOT DONE Respiratory: Accessory Muscle Use, Respiratory Distress, Wheezing Cardiovascular: Tachycardia Breast Exam: Deferred Gastrointestinal: No Organomegaly, Non Tender, No Pulsatile Mass, Normal Bowel Sounds, Soft Genitalia: Deferred Pelvic: Deferred Rectal: Deferred Extremities: No calf tenderness, Normal capillary refill, Normal inspection, Normal range of motion, Non-tender, No pedal edema Neurologic: Alert, elevator mechanic II-XII nml as Tested, No Motor Deficits, Normal Affect, Normal Mood, No Sensory Deficits Cerebellar Function: Normal Reflexes: Normal Skin: Dry, Normal Color, Warm Lymphatic: No Adenopathy Was a procedure done? Was a procedure done?: No Differential Dx Differential Diagnosis: Asthma, CHF, COPD, Myocardial infarction, Panic Attack, Pneumonia, Pneumothorax, Respiratory Distress X-Ray, Labs, Meds, VS Vital Signs Date Time Temp Pulse Resp B/P (MAP) Pulse Ox O2 Delivery O2 Flow Rate FiO2 01/27/24 01:00 102 24 106/55 (72) 100 01/27/24 00:00 117 01/26/24 23:00 144 26 153/88 (109) 99 01/26/24 22:48 Bi-Pap+ 40 40 01/26/24 21:55 141 163/121 Facial BiPAP Mask 40 01/26/24 21:32 135 01/26/24 21:28 137 26 163/121 (135) 67 01/26/24 21:25 135 01/26/24 21:20 132 Facial BiPAP Mask 40 01/26/24 21:16 97.9 135 26 194/118 (143) 81 Lab Test 01/27/24 02:38 01/27/24 00:37 01/26/24 22:45 01/26/24 21:57 Range/Units Influenza Type A Antigen Negative Negative Influenza Type B Antigen Negative Negative SARS-CoV-2 Antigen (Rapid) Negative NEGATIVE Troponin I High Sensitivity 71 *H 40 </=54 ng/L Blood Gas Specimen Type Arterial Blood Gas Sample Site Left radial Blood Gas Patient Temperature 37.0 Arterial Blood Date Drawn [id number] Arterial Blood pH 7.262 L 7.350-7.450 Arterial Blood Partial Pressure CO2 57.3 H 35.0-48.0 mmHg Arterial Blood Partial Pressure O2 63.9 L 83.0-108.0 mmHg Arterial Blood HCO3 25.3 21.0-28.0 mmol/L Arterial Blood Oxygen Saturation 88.5 L 94.0-98.0 % Arterial Blood Base Excess -2.8 L -2.0-3.0 mmol/L Arterial Blood Oxyhemoglobin 86.5 L 94.0-98.0 % Arterial Blood Carboxyhemoglobin 1.7 H 0.5-1.5 % Arterial Blood Methemoglobin 0.6 0.0-1.5 % Shailesh Test Yes Blood Gas Total Hemoglobin 14.80 13.5-17.5 g/dL Blood Gas Set Respiration Rate 16.0 Blood Gas Modality Mask - bipap Blood Gas Spontaneous Rate 39 FiO2 % 100.0 Blood Gas Spontaneous Tidal Volume 430 Blood Gas EPAP 5 Blood Gas IPAP 10 Test 01/26/24 21:45 Range/Units White Blood Count 7.5 4.4-10.8 10^3/uL Red Blood Count 4.30 L 4.5-5.90 10^6/uL Hemoglobin 15.0 13.5-17.5 g/dL Hematocrit 44.2 41.0-53.0 % Mean Corpuscular Volume 102.8 H 80.0-100.0 fL Mean Corpuscular Hemoglobin 34.9 H 28.0-32.0 pg Mean Corpuscular Hemoglobin Concent 34.0 32.0-36.0 g/dL Red Cell Distribution Width 13.7 11.8-14.3 % Platelet Count 201 140-450 10^3/uL Mean Platelet Volume 8.1 6.9-10.8 fL Neutrophils (%) (Auto) 78.5 37.0-80.0 % Lymphocytes (%) (Auto) 9.9 L 10.0-50.0 % Monocytes (%) (Auto) 11.0 0.0-12.0 % Eosinophils (%) (Auto) 0.0 0.0-7.0 % Basophils (%) (Auto) 0.6 0.0-2.0 % Neutrophils # (Auto) 5.8 1.6-8.6 10 ^3/uL Lymphocytes # (Auto) 0.7 0.4-5.4 10 ^3/uL Monocytes # (Auto) 0.8 0-1.3 10 ^3/uL Eosinophils # (Auto) 0 0-0.8 10 ^3/uL Basophils # (Auto) 0 0-0.2 10 ^3/uL Nucleated Red Blood Cells 0.1 % Sodium Level 137 136-145 mmol/L Potassium Level 4.2 3.5-5.1 mmol/L Chloride Level 102 98-107 mmol/L Carbon Dioxide Level 23 20-31 mmol/L Anion Gap 12 5-15 Blood Urea Nitrogen 12 9-23 mg/dL Creatinine 1.21 0.700-1.30 mg/dL Glomerular Filtration Rate Calc 60 >90 mL/min BUN/Creatinine Ratio 9.9 L 10.0-20.0 Serum Glucose 146 H 74-106 mg/dL Calcium Level 9.5 8.7-10.4 mg/dL Total Bilirubin 0.6 0.2-1.0 mg/dL Aspartate Amino Transferase (AST) 34 13-40 U/L Alanine Aminotransferase (ALT) 28 7-40 U/L Alkaline Phosphatase 124 H 46-116 U/L Troponin I High Sensitivity 28 </=54 ng/L B-Type Natriuretic Peptide 257.59 0-100 pg/mL Total Protein 7.4 5.7-8.2 g/dL Albumin 4.7 3.2-4.8 g/dL Current Medications Medications (Trade) Dose Ordered Sig/Gilbert Route Start Time Stop Time Status Last Admin Ketamine HCl (Ketalar) 30 mg ONCE ONCE IV 01/26/24 22:15 01/26/24 22:16 DC 01/26/24 22:13 Albuterol (Ventolin Medneb) 20 mg ONCE ONCE NEB 01/26/24 22:30 01/26/24 22:31 DC 01/26/24 22:46 Ipratropium [place] (Atrovent Medneb) 1 mg ONCE ONCE NEB 01/26/24 22:30 01/26/24 22:31 DC 01/26/24 22:46 Albuterol (Ventolin Medneb) 2.5 mg Q6HPRN PRN NEB 01/27/24 03:30 01/27/24 04:29 Ipratropium [place] (Atrovent Medneb) 0.5 mg Q6HPRN PRN NEB 01/27/24 03:30 01/27/24 04:29 Time of 1ST Reevaluation: 21:47 Reevaluation 1ST: Unchanged Patient Education/Counseling: Diagnosis, Treatment, Prognosis Family Education/Counseling: No Family Present Departure 1 Departure Time of Disposition: 06:19 (Patient presenting respiratory failure.Patient presented with acute shortness of breath concerning for acute on chronic COPD Exacerbation, Pneumonia, ACS, CHF, Pneumothorax. Less likely PE, Dissection. Data: 1. I ordered and reviewed the result of at least 3 labs including a CBC, BMP, and Troponin. 2. I independently interpreted the following tests: Chest X- ray shows some opacities of unknown etiology .Risk:This patient has a high risk of morbidity due to further diagnostic testing or treatment and may suffer from respiratory or cardiac etiology . Workup reveals a likely COPD Exacerbation and patient should be admitted for further workup. and possible expert consultation.) Impression: Primary Impression: Acute respiratory failure with hypoxemia Additional Impression: Acute exacerbation of chronic obstructive pulmonary disease (COPD) Disposition: 09 ADMITTED INPATIENT Admit to: [facility] Condition: Guarded Critical Care Note Critical Care Time?: Yes Critical care comment: Acute respiratory failure Authorized and Performed by: Kay Lindquist MD Total critical care time: Approximately 39 minutes Due to a high probability of clinically significant, life threatening deterioration, the patient required my highest level of preparedness to intervene emergently and I personally spent this critical care time directly and personally managing the patient. This critical care time included obtaining a history; examining the patient; pulse oximetry; ordering and review of studies; arranging urgent treatment with development of a management plan; evaluation of patient's response to treatment; frequent reassessment; and, discussions with other providers. This critical care time was performed to assess and manage the high probability of imminent, life-threatening deterioration that could result in multi-organ failure. It was exclusive of separately billable procedures and treating other patients and teaching time. Please see my other sections and the rest of the note for further information on patient assessment and treatment. Stability Stability form required: No Heart Score Heart Score: Heart Score Response (Comments) Value History Slightly Suspicious 0 EKG Repolarization Disturb 1 Age >65 2 Risk Factors >3 or Hx ASHD 2 Troponin >3 x's Normal limit 2 Total 7 I personally scribed for KAY LINDQUIST MD ([email or web address]) on 01/26/24 at 21:31. Electronically submitted by Parveen Kumar ([email or web address]). KAY LINDQUIST MD Jan 26, 2024 21:31
[2024-01-26] MEDS ORDERED: ALBUTEROL SULF 2.5 MG/0.5ML(0.5%) NEB SOLN NEB ONE (21:45)
[2024-01-26] MEDS ORDERED: IPRATROPIUM BROM 0.5 MG/2.5ML INH SOL NEB ONE (21:45)
[2024-01-26 22:01] LABS: Eosinophils # (auto) 0 10 ^3/uL (0-0.8); Hematocrit 44.2 % (41.0-53.0); Monocytes # (auto) 0.8 10 ^3/uL (0-1.3); Nucleated Red Blood Cells % 0.1 %
[2024-01-26 22:03] LABS: Basophils # (auto) 0 10 ^3/uL (0-0.2); Basophils % (auto) 0.6 % (0.0-2.0); Lymphocytes # (auto) 0.7 10 ^3/uL (0.4-5.4); Lymphocytes % (auto) 9.9 % (10.0-50.0); Mean Corpuscular Hemoglobin 34.9 pg (28.0-32.0); Mean Corpuscular Volume 102.8 fL (80.0-100.0); Neutrophils # (auto) 5.8 10 ^3/uL (1.6-8.6); Neutrophils % (auto) 78.5 % (37.0-80.0); Platelet Count (auto) 201 10^3/uL (140-450); Red Cell Distribution Width 13.7 % (11.8-14.3); White Blood Cell 7.5 10^3/uL (4.4-10.8)
[2024-01-26] MEDS: KETAMINE 50mg/ML 10ml Vial (500mg/10ml) IV ONE (22:13)
--- NOTE | 2024-01-26 22:13 | DVH ---
CHEST RADIOGRAPH Indication: sob Technique: Single frontal view of the chest was obtained Comparison: XY CHEST PORTABLE on DOS: 02/19/23, XY CHEST PORTABLE on DOS: 02/14/23, XY CHEST PORTABLE o n DOS: 02/12/23 Findings/ IMPRESSION: Hyperexpanded lungs with coarse bilateral interstitial opacities which are nonspecific. No focal cons olidation or pneumothorax. No pleural effusions.
[2024-01-26 22:25] LABS: Alanine Aminotransferase 28 U/L (7-40); Albumin 4.7 g/dL (3.2-4.8); Anion Gap 12 (5-15); Aspartate Aminotransferase 34 U/L (13-40); BUN/Creatinine Ratio 9.9 (10.0-20.0); Bilirubin, Total 0.6 mg/dL (0.2-1.0); Blood Urea Nitrogen 12 mg/dL (9-23); Calcium 9.5 mg/dL (8.7-10.4); Carbon Dioxide 23 mmol/L (20-31); Chloride 102 mmol/L (98-107); Potassium 4.2 mmol/L (3.5-5.1); Sodium 137 mmol/L (136-145); Total Protein 7.4 g/dL (5.7-8.2)
[2024-01-26 22:26] LABS: Alkaline Phosphatase 124 U/L (46-116); Glucose 146 mg/dL (74-106)
[2024-01-26 22:28] LABS: Base Excess -2.8 mmol/L (-2.0-3.0)
[2024-01-26] MEDS: ALBUTEROL SULF 2.5 MG/0.5ML(0.5%) NEB SOLN NEB ONE (22:46)
[2024-01-26] MEDS: IPRATROPIUM BROM 0.5 MG/2.5ML INH SOL NEB ONE (22:46)
[2024-01-27] VITALS (13 sets, daily range): BP systolic 105–155; BP diastolic 55–94; PULSE 94–126; RESP 18–30; TEMP 97.9; O2SAT 90–100
[2024-01-27] MEDS ORDERED: ACETAMINOPHEN 325 MG TAB PO PRN (03:30)
[2024-01-27] MEDS ORDERED: ONDANSETRON HCL 4 MG/2 ML VIAL IV PRN (03:30)
[2024-01-27] MEDS ORDERED: NITROGLYCERIN 0.4 MG SL TAB SL PRN (03:30)
[2024-01-27] MEDS ORDERED: MORPHINE SULFATE INJ 2 MG/ml SYRG IV PRN (03:30)
[2024-01-27 04:10] LABS: COVID19 ANTIGEN SOFIA FIA NEGATIVE (NEGATIVE); Rapid Influenza A Negative (Negative); Rapid Influenza B Negative (Negative)
[2024-01-27] MEDS: IPRATROPIUM BROM 0.5 MG/2.5ML INH SOL NEB PRN (04:29)
[2024-01-27] MEDS: ALBUTEROL SULF 2.5 MG/0.5ML(0.5%) NEB SOLN NEB PRN (04:29)
[2024-01-27] MEDS: LORazepam 2MG/ML-1ML VIAL IV PRN (04:41)
--- NOTE | 2024-01-27 04:42 | DVHHP2 ---
History of Present Illness Reason for Visit: Shortness for breath History of Present Illness 83-year-old male presents for evaluation of shortness for breath. Patient presents with a one day history of worsening shortness for breath not being relief with inhaler and nebulizer at. On arrival patient is saturating 81% room air. Patient was placed on BiPAP. No complaints of chest pain or palpitations. No fever or chills. Past Medical History COPD, chronic kidney disease, dyslipidemia, [place] Past Surgical History Hernia repair and PTCA Family History Noncontributory Smoke: No ALCOHOL: none Drugs: None Lives: with Family Review of Systems Review of Systems Review of systems are currently negative otherwise addressed in HPI. Allergies: Coded Allergies: NO KNOWN ALLERGIES (Unverified , 03/18/16) Medications Current Medications Medications Dose Ordered Sig/Gilbert Route Start Time Stop Time Status Last Admin Dose Admin Albuterol 2.5 mg Q6HPRN PRN NEB 01/27/24 03:30 01/27/24 04:29 2.5 MG Ipratropium [place] 0.5 mg Q6HPRN PRN NEB 01/27/24 03:30 01/27/24 04:29 0.5 MG Lisinopril 10 mg DAILY PO 01/27/24 10:00 Aspirin 81 mg DAILY PO 01/27/24 10:00 Atorvastatin Calcium 40 mg HS PO 01/27/24 22:00 Clopidogrel Bisulfate 75 mg DAILY PO 01/27/24 10:00 Azithromycin 250 ml @ 125 mls/hr DAILY IV 01/27/24 10:00 Ondansetron HCl 4 mg Q4HP PRN IV 01/27/24 03:30 Enoxaparin Sodium 40 mg DAILY SC 01/27/24 10:00 Acetaminophen 650 mg Q6HP PRN PO 01/27/24 03:30 Nitroglycerin 0.4 mg Q5MINP PRN SL 01/27/24 03:30 Morphine Sulfate 2 mg Q30M PRN IV 01/27/24 03:30 Lorazepam 0.5 mg Q12HP PRN IV 01/27/24 04:45 Exam Vital Signs Vital Signs Date Time Temp Pulse Resp B/P (MAP) Pulse Ox O2 Delivery O2 Flow Rate FiO2 01/27/24 04:01 107 112/67 94 Facial BiPAP Mask 40 01/27/24 03:53 97.9 24 2.0 97.9 Exam Gen: 83-year-old male in mild distress Skin: Warm, dry, normal color and texture, no rash. HEENT: Normocephalic atraumatic, mucous membranes moist and pink. Neck: Cervical and supraclavicular nodes normal without enlargement, trachea is midline, thyroid gland is normal without masses. Pulmonary: Wheezing. Cardiac: Regular rate and rhythm. No murmur Abdomen: Soft, nontender, nondistended, bowel sounds present all 4 quadrants, no guarding, no rigidity, no organomegaly. Extremities: No cyanosis, clubbing, no edema Neuro: Cranial nerves II through XII grossly intact, normal affect and speech, no focal motor deficits. Labs/Xrays ORDERING PHYSICIAN: KAY MATHEWS MD PROCEDURE(s): CXRP - CHEST PORTABLE REASON: sob ORDER NUMBER(s): [id number], ACCESSION NUMBER(s): [id number] CHEST RADIOGRAPH Indication: sob Technique: Single frontal view of the chest was obtained Comparison: XY CHEST PORTABLE on DOS: 02/19/23, XY CHEST PORTABLE on DOS: 02/14/23, XY CHEST PORTABLE on DOS: 02/12/23 Findings/ IMPRESSION: Hyperexpanded lungs with coarse bilateral interstitial opacities which are nonspecific. No focal consolidation or pneumothorax. No pleural effusions. Labs Test 01/27/24 02:38 01/27/24 00:37 01/26/24 21:57 01/26/24 21:45 Range/Units Influenza Type A Antigen Negative Negative Influenza Type B Antigen Negative Negative SARS-CoV-2 Antigen (Rapid) Negative NEGATIVE Troponin I High Sensitivity 71 *H </=54 ng/L Blood Gas Specimen Type Arterial Blood Gas Sample Site Left radial Blood Gas Patient Temperature 37.0 Arterial Blood Date Drawn Arterial Blood pH 7.262 L 7.350-7.450 Arterial Blood Partial Pressure CO2 57.3 H 35.0-48.0 mmHg Arterial Blood Partial Pressure O2 63.9 L 83.0-108.0 mmHg Arterial Blood HCO3 25.3 21.0-28.0 mmol/L Arterial Blood Oxygen Saturation 88.5 L 94.0-98.0 % Arterial Blood Base Excess -2.8 L -2.0-3.0 mmol/L Arterial Blood Oxyhemoglobin 86.5 L 94.0-98.0 % Arterial Blood Carboxyhemoglobin 1.7 H 0.5-1.5 % Arterial Blood Methemoglobin 0.6 0.0-1.5 % Shailesh Test Yes Blood Gas Total Hemoglobin 14.80 13.5-17.5 g/dL Blood Gas Set Respiration Rate 16.0 Blood Gas Modality Mask - bipap Blood Gas Spontaneous Rate 39 FiO2 % 100.0 Blood Gas Spontaneous Tidal Volume 430 Blood Gas EPAP 5 Blood Gas IPAP 10 White Blood Count 7.5 4.4-10.8 10^3/uL Red Blood Count 4.30 L 4.5-5.90 10^6/uL Hemoglobin 15.0 13.5-17.5 g/dL Hematocrit 44.2 41.0-53.0 % Mean Corpuscular Volume 102.8 H 80.0-100.0 fL Mean Corpuscular Hemoglobin 34.9 H 28.0-32.0 pg Mean Corpuscular Hemoglobin Concent 34.0 32.0-36.0 g/dL Red Cell Distribution Width 13.7 11.8-14.3 % Platelet Count 201 140-450 10^3/uL Mean Platelet Volume 8.1 6.9-10.8 fL Neutrophils (%) (Auto) 78.5 37.0-80.0 % Lymphocytes (%) (Auto) 9.9 L 10.0-50.0 % Monocytes (%) (Auto) 11.0 0.0-12.0 % Eosinophils (%) (Auto) 0.0 0.0-7.0 % Basophils (%) (Auto) 0.6 0.0-2.0 % Neutrophils # (Auto) 5.8 1.6-8.6 10 ^3/uL Lymphocytes # (Auto) 0.7 0.4-5.4 10 ^3/uL Monocytes # (Auto) 0.8 0-1.3 10 ^3/uL Eosinophils # (Auto) 0 0-0.8 10 ^3/uL Basophils # (Auto) 0 0-0.2 10 ^3/uL Nucleated Red Blood Cells 0.1 % Sodium Level 137 136-145 mmol/L Potassium Level 4.2 3.5-5.1 mmol/L Chloride Level 102 98-107 mmol/L Carbon Dioxide Level 23 20-31 mmol/L Anion Gap 12 5-15 Blood Urea Nitrogen 12 9-23 mg/dL Creatinine 1.21 0.700-1.30 mg/dL Glomerular Filtration Rate Calc 60 >90 mL/min BUN/Creatinine Ratio 9.9 L 10.0-20.0 Serum Glucose 146 H 74-106 mg/dL Calcium Level 9.5 8.7-10.4 mg/dL Total Bilirubin 0.6 0.2-1.0 mg/dL Aspartate Amino Transferase (AST) 34 13-40 U/L Alanine Aminotransferase (ALT) 28 7-40 U/L Alkaline Phosphatase 124 H 46-116 U/L B-Type Natriuretic Peptide 257.59 0-100 pg/mL Total Protein 7.4 5.7-8.2 g/dL Albumin 4.7 3.2-4.8 g/dL Assessment/Plan Assessment/Plan Assessment Acute on chronic hypoxic respiratory failure Hypertension COPD Elevated troponin, demand ischemia Plan Admit the patient to telemetry to the hospitalist Med santis Azithromycin Resume home medications Continue treatment per orders. Plan discussed with: Patient My Orders Orders - FARIBA GARCIA AGACNP Procedure Category Date Status Time Albuterol Medneb PHA 01/27/24 In Process (Ventolin Medneb) 03:30 Ipratropium Medneb PHA 01/27/24 In Process (Atrovent Medneb) 03:30 Lisinopril Tablet PHA 01/27/24 In Process (Zestril Tablet) 10:00 Aspirin Tablet PHA 01/27/24 In Process 10:00 Atorvastatin (Lipitor) PHA 01/27/24 In Process 22:00 Clopidogrel Bisulfate PHA 01/27/24 In Process (Plavix) 10:00 Basic Metabolic Panel LAB 01/28/24 Verified 04:00 Azithromycin 500mg/ PHA 01/27/24 In Process 250ml (Zithromax 50 10:00 Admit ADMIT 01/27/24 Transmitted 03:30 Ondansetron Hcl PHA 01/27/24 In Process (Zofran) 03:30 Enoxaparin Sodium PHA 01/27/24 In Process (Lovenox) 10:00 Complete Blood Count LAB 01/28/24 Verified 04:00 Cardiac DIET 01/27/24 Transmitted Diet-2gna,Lofat,Lochol Breakfast Condition: Fair JOLENE 01/27/24 In Process 03:30 Acetaminophen Tablet [facility] 01/27/24 In Process (Tylenol Tablet) 03:30 Bedrest With Bathroom [facility] 01/27/24 In Process Privileg 03:30 Nitroglycerin [facility] 01/27/24 In Process Sublingual (Ntrostat 03:30 Morphine Sulfate [facility] 01/27/24 In Process Injection 03:30 Stat Ekg For Chest [facility] 01/27/24 In Process Pain 03:30 Notify Md Of Changes [facility] 01/27/24 In Process From Base 03:30 Splicer Helper For [facility] 01/27/24 In Process 24 Hours 03:30 Emergency Dysrhythmia [facility] 01/27/24 In Process Protocol 03:30 Rhythm Strips Once [facility] 01/27/24 In Process Every Shift 03:30 Oxygen By Nasal RT 01/27/24 Transmitted Cannula 03:30 Lorazepam 2mg/Ml Inj [facility] 01/27/24 In Process (Ativan Inj) 04:45 Date of Service: Jan 27, 2024 Billing Provider: FARIBA GARCIA Common Visit Codes: [id number] INP/OBS CARE (HIGH) FARIBA GARCIA Jan 27, 2024 04:42
--- NOTE | 2024-01-27 06:45 | ECG ---
[facility] Test Date: 2024-01-26 Test Time: 21:32:56 Pat Name: DEVORAH RICKS Department: ED Room: 0293T Gender: M Prenatal Genetic Counselor: ASMANTHA : 1940 Requested By: KAY MATHEWS Order Number: [id number] Reading MD: Kel Salinas Measurements Intervals [place] Rate: 135 P: 89 NM: 124 QRS: 98 QRSD: 104 T: 73 QT: 294 QTc: 441 Interpretive Statements Sinus tachycardia Right axis deviation Artifact in lead(s) II,III,aVR,aVL,aVF,V1,V2,V3,V4,V5,V6 Electronically Signed On 01-29-2024 12:41:22 PST by Kel Salinas Please click the below link to view image of tracing.
[2024-01-27] MEDS: ONDANSETRON HCL 4 MG/2 ML VIAL IV ONE (08:41)
[2024-01-27] MEDS: MORPHINE SULFATE INJ 2 MG/ml SYRG IV ONE (08:41)
[2024-01-27] MEDS: LISINOPRIL 5 MG TAB PO SCH (10:29)
[2024-01-27] MEDS: CLOPIDOGREL BISULFATE 75 MG TAB PO SCH (10:29)
[2024-01-27] MEDS: ENOXAPARIN SOD 40 MG/0.4 ML SYRINGE SC SCH (10:30)
[2024-01-27] MEDS: ASPirin 81 mg TAB PO SCH (10:30)
[2024-01-27] MEDS ORDERED: LORazepam 2MG/ML-1ML VIAL IV PRN (10:30)
[2024-01-27] MEDS: AZITHROMYCIN 500MG/ 250ML 250 ML IV SCH (10:31)
[2024-01-27] MEDS: methylPREDNISolone SOD SUCC 125 MG/2 ML VL IV ONE (10:32)
[2024-01-27 11:01] LABS: Base Excess -1.2 mmol/L (-2.0-3.0)
[2024-01-27] MEDS: IPRATROPIUM BROM 0.5 MG/2.5ML INH SOL NEB SCH (12:27)
[2024-01-27] MEDS: LEVALBUTEROL HCL 1.25 MG/3 ML NEB NEB SCH (12:28)
[2024-01-27 13:16] LABS: Base Excess -1.5 mmol/L (-2.0-3.0)
--- NOTE | 2024-01-27 13:56 | DVHPN2 ---
Progress Note Date Seen: Jan 27, 2024 Medical Necessity Reason Pt with a Central, PICC or Fol: Yes The following are medically ne: Allen Catheter Reason for allen catheter: Strict I&O Subjective Patient reports: No new complaints Review of Systems: HEENT:Normal, CVS:Normal, RESPIRATORY:Normal, GI:Normal, :Normal, MSK:Normal, NEURO:Normal Objective vital signs Vital Sign Date Time Temp Pulse Resp B/P (MAP) Pulse Ox O2 Delivery O2 Flow Rate FiO2 01/27/24 12:34 109 24 98 01/27/24 12:28 Oxymizer 1.5 01/27/24 12:28 N/A 01/27/24 12:00 122/74 (90) 01/27/24 03:53 97.9 97.9 medications Current Medications Medications Dose Ordered Sig/Gilbert Route Start Time Stop Time Status Last Admin Dose Admin Albuterol 2.5 mg Q6HPRN PRN NEB 01/27/24 03:30 01/27/24 04:29 2.5 MG Lisinopril 10 mg DAILY PO 01/27/24 10:00 01/27/24 10:29 10 MG Aspirin 81 mg DAILY PO 01/27/24 10:00 01/27/24 10:30 81 MG Atorvastatin Calcium 40 mg HS PO 01/27/24 22:00 Clopidogrel Bisulfate 75 mg DAILY PO 01/27/24 10:00 01/27/24 10:29 75 MG Azithromycin 250 ml @ 125 mls/hr DAILY IV 01/27/24 10:00 01/27/24 10:31 125 MLS/HR Ondansetron HCl 4 mg Q4HP PRN IV 01/27/24 03:30 Enoxaparin Sodium 40 mg DAILY SC 01/27/24 10:00 01/27/24 10:30 40 MG Acetaminophen 650 mg Q6HP PRN PO 01/27/24 03:30 Nitroglycerin 0.4 mg Q5MINP PRN SL 01/27/24 03:30 Morphine Sulfate 2 mg Q30M PRN IV 01/27/24 03:30 Lorazepam 0.5 mg Q6HP PRN IV 01/27/24 10:30 Methylprednisolone Sodium Succinate 40 mg Q8HR IV 01/27/24 14:00 Levalbuterol HCl 1.25 mg Q6HR NEB 01/27/24 12:00 01/27/24 12:28 1.25 MG Ipratropium [place] 0.5 mg Q6HR NEB 01/27/24 12:00 01/27/24 12:27 0.5 MG Morphine Sulfate 1 mg Q4HP PRN IV 01/27/24 10:30 Examination: GENERAL:Normal, HEENT:Normal, NECK:Normal, LUNGS:Normal, LUNGS:Abnormal (on bipap), CVS:Normal, ABDOMEN:Normal, MSK:Normal, SKIN:Normal, NEURO:Normal, :Normal laboratory and microbiology Laboratory Tests 01/26/24 21:45 Test 01/26/24 21:45 Range/Units Serum Glucose 146 H 74-106 mg/dL Problem List/Assessment/Plan Problem List/Assessment/Plan #1 acute resp failure: cont bipap, monitor abg #2 copd with exacerbation: cont steroids #3 ?pneumonia: iv antibiotics #4 htn #6 ?acute on chronic diastolic heart failure: lasix iv #7 h/o cad #8 nstemi ?type 2 Plan discussed with: Patient My Orders My Orders Orders - FARIBA GRADY MD Procedure Category Date Status Time Lorazepam 2mg/Ml Inj PHA 01/27/24 In Process (Ativan Inj) 10:30 Methylprednisolone PHA 01/27/24 In Process Sod Succ (Solu Medrol 14:00 Levalbuterol Hcl PHA 01/27/24 In Process (Xopenex Medneb) 12:00 Ipratropium Medneb PHA 01/27/24 In Process (Atrovent Medneb) 12:00 Morphine Sulfate PHA 01/27/24 In Process Injection 10:30 Abg W/ Co-Ox RT 01/27/24 Logged 10:17 Complete Blood Count LAB 01/28/24 Verified 06:00 Comprehensive LAB 01/28/24 Verified Metabolic Panel 06:00 Chest Portable XY 01/28/24 Logged 06:00 Abg W/ Co-Ox RT 01/28/24 Logged 06:00 Abg W/ Co-Ox RT 01/27/24 Logged 12:45 Furosemide Injection PHA 01/27/24 Verified (Lasix Injection) 14:00 Echo 2d Mode Cardiac US 01/27/24 Verified DOP 13:52 Critical Care Time (mins): 47 (critical care time including monitoring of abg was 47 mins) Date of Service: Jan 27, 2024 Billing Provider: FARIBA GRADY MD Common Visit Codes: [id number] CARE 30-74 MIN FARIBA GRADY MD Jan 27, 2024 13:56
[2024-01-27] MEDS: methylPREDNISolone SOD SUCC 40 MG/ML VL IV SCH (14:51)
[2024-01-27] MEDS: FUROSEMIDE 20 MG/2 ML VIAL IV ONE (14:51)
[2024-01-27 15:55] LABS: Base Excess -1.6 mmol/L (-2.0-3.0)
[2024-01-27 21:05] LABS: Base Excess -0.6 mmol/L (-2.0-3.0)
[2024-01-27] MEDS: ATORVASTATIN 20 MG TAB PO SCH (23:44)
[2024-01-28] VITALS (15 sets, daily range): BP systolic 118–133; BP diastolic 69–81; PULSE 71–108; RESP 16–28; TEMP 97.5–97.8; O2SAT 89–100
[2024-01-28 06:11] LABS: Basophils # (auto) 0 10 ^3/uL (0-0.2); Basophils % (auto) 0.1 % (0.0-2.0); Eosinophils # (auto) 0 10 ^3/uL (0-0.8); Hemoglobin 14.3 g/dL (13.5-17.5); Lymphocytes # (auto) 0.2 10 ^3/uL (0.4-5.4); Monocytes % (auto) 13.1 % (0.0-12.0)
[2024-01-28 06:15] LABS: Hematocrit 42.8 % (41.0-53.0); Lymphocytes % (auto) 3.1 % (10.0-50.0); Mean Corpuscular Hemoglobin 34.1 pg (28.0-32.0); Mean Corpuscular Hgb Conc. 33.5 g/dL (32.0-36.0); Mean Corpuscular Volume 101.9 fL (80.0-100.0); Monocytes # (auto) 0.8 10 ^3/uL (0-1.3); Neutrophils # (auto) 4.9 10 ^3/uL (1.6-8.6); Neutrophils % (auto) 83.7 % (37.0-80.0); Platelet Count (auto) 156 10^3/uL (140-450); Red Cell Distribution Width 13.8 % (11.8-14.3); White Blood Cell 5.8 10^3/uL (4.4-10.8)
[2024-01-28 06:29] LABS: Albumin 4.1 g/dL (3.2-4.8); Alkaline Phosphatase 100 U/L (46-116); Anion Gap 8 (5-15); BUN/Creatinine Ratio 23.8 (10.0-20.0); Bilirubin, Total 0.5 mg/dL (0.2-1.0); Carbon Dioxide 31 mmol/L (20-31); Chloride 102 mmol/L (98-107); Glucose 103 mg/dL (74-106); Sodium 141 mmol/L (136-145); Total Protein 6.7 g/dL (5.7-8.2)
[2024-01-28 06:34] LABS: Alanine Aminotransferase 42 U/L (7-40); Aspartate Aminotransferase 93 U/L (13-40); Blood Urea Nitrogen 31 mg/dL (9-23)
--- NOTE | 2024-01-28 08:01 | DVH ---
CLINICAL INFORMATION: 83 years old, Male; COPD. TECHNIQUE: Single AP portable chest radiograph was obtained. COMPARISON: XY CHEST PORTABLE on DOS: 01/26/24, XY CHEST PORTABLE on DOS: 02/19/23, XY CHEST PORTABLE o n DOS: 02/14/23 FINDINGS: The patient's chin/face partially obscures visualization of the lung apices. Portions of the right co stophrenic angle are excluded from the [id number] of the exam. Similar-appearing emphysematous harrison nges. No focal consolidation visualized. No other significant interval change. IMPRESSION: 1. Limited examination for the reasons described above. 2. Grossly similar-appearing emphysematous changes.
[2024-01-28 10:12] LABS: Base Excess -5.3 mmol/L (-2.0-3.0)
--- NOTE | 2024-01-28 13:39 | DVHSR ---
APPROVED REPORT EXAM: Two-dimensional and M-mode echocardiogram with Doppler and color Doppler. Blood Pressure: 118/73 mmHg INDICATION Heart Failure RISK FACTORS Height: 5'11", Weight: 95 DIMENSIONS LVDd4.1 (3.8-5.7cm)LA (2D)3.0 (1.9-4.0cm)Aortic Root (2.0-3.7cm) LVDs3.5 (2.5-4.0cm)LA (MM) (1.9-4.0cm)Aortic Cusp Exc (1.5-2.0cm) EF (%) 33.0 (55-70%)Rt. Atrium (1.9-4.0cm)Asc. Aorta cm IVSd0.8 (0.7-1.1cm)RV (D) (1.8-2.4cm) Mitral Valve MitralMitral Stenosis E/A ratio0.02D MVAcm2 Other Information Quality : Technically LimitedRhythm : Technically limited study due to body habitus, pt sitting up and breathing pattern. Conclusion Severely reduced left ventricular systolic function with estimated ejection fraction of 35%. There i s a global wall hypokinesia. Moderately reduced right ventricular systolic function. Could not assess right ventricular systolic pressure due to poor Doppler segment. Moderately dilated right and left atria. Aortic valve is mildly thickened and sclerotic no significant stenosis or regurgitation was noted. Grossly normal mitral valve and tricuspid valve. The pulmonary valve could not be visualized. No significant pericardial effusion.
--- NOTE | 2024-01-28 14:17 | DVHPN2 ---
Progress Note Date Seen: Jan 28, 2024 Medical Necessity Reason Pt with a Central, PICC or Fol: No Subjective Patient reports: No new complaints Review of Systems: HEENT:Normal, CVS:Normal, RESPIRATORY:Normal, GI:Normal, :Normal, MSK:Normal, NEURO:Normal Objective vital signs Vital Sign Date Time Temp Pulse Resp B/P (MAP) Pulse Ox O2 Delivery O2 Flow Rate FiO2 01/28/24 13:00 97.7 104 16 130/81 (97) 95 97.7 01/28/24 10:40 Nasal Cannula 3.0 01/28/24 10:40 32 Total Intake and Output 01/27/24 01/27/24 01/28/24 15:00 23:00 07:00 Intake Total 650 ml Output Total 200 ml Balance 450 ml medications Current Medications Medications Dose Ordered Sig/Gilbert Route Start Time Stop Time Status Last Admin Dose Admin Albuterol 2.5 mg Q6HPRN PRN NEB 01/27/24 03:30 01/28/24 02:25 2.5 MG Lisinopril 10 mg DAILY PO 01/27/24 10:00 01/28/24 09:20 10 MG Aspirin 81 mg DAILY PO 01/27/24 10:00 01/28/24 09:21 81 MG Atorvastatin Calcium 40 mg HS PO 01/27/24 22:00 01/27/24 23:44 40 MG Clopidogrel Bisulfate 75 mg DAILY PO 01/27/24 10:00 01/28/24 09:22 75 MG Azithromycin 250 ml @ 125 mls/hr DAILY IV 01/27/24 10:00 01/28/24 09:16 125 MLS/HR Ondansetron HCl 4 mg Q4HP PRN IV 01/27/24 03:30 Enoxaparin Sodium 40 mg DAILY SC 01/27/24 10:00 01/28/24 09:18 40 MG Acetaminophen 650 mg Q6HP PRN PO 01/27/24 03:30 Nitroglycerin 0.4 mg Q5MINP PRN SL 01/27/24 03:30 Morphine Sulfate 2 mg Q30M PRN IV 01/27/24 03:30 Lorazepam 0.5 mg Q6HP PRN IV 01/27/24 10:30 Methylprednisolone Sodium Succinate 40 mg Q8HR IV 01/27/24 14:00 01/28/24 05:38 40 MG Levalbuterol HCl 1.25 mg Q6HR NEB 01/27/24 12:00 01/28/24 13:48 1.25 MG Ipratropium [place] 0.5 mg Q6HR NEB 01/27/24 12:00 01/28/24 13:47 0.5 MG Morphine Sulfate 1 mg Q4HP PRN IV 01/27/24 10:30 Examination: GENERAL:Normal, HEENT:Normal, NECK:Normal, LUNGS:Normal, LUNGS:Abnormal (on oxygen), CVS:Normal, ABDOMEN:Normal, MSK:Normal, SKIN:Normal, NEURO:Normal, :Normal laboratory and microbiology Laboratory Tests 01/28/24 05:01 Test 01/28/24 05:01 Range/Units Serum Glucose 103 74-106 mg/dL Problem List/Assessment/Plan Problem List/Assessment/Plan #1 acute resp failure: cont bipap, monitor abg #2 copd with exacerbation: cont steroids #3 ?pneumonia: iv antibiotics #4 htn #6 acute on chronic systolic heart failure: lasix iv #7 h/o cad #8 nstemi ?type 2 #9 hyperlipidemia advance care planning- full code- time spent 21 mins Plan discussed with: Patient My Orders My Orders Orders - FARIBA GRADY MD Procedure Category Date Status Time Abg W/ Co-Ox RT 01/27/24 Logged 20:00 Education - Smoking JOLENE 01/28/24 In Process Cessation 02:56 Date of Service: Jan 28, 2024 Billing Provider: FARIBA GRADY MD Common Visit Codes: [id number] INP/OBS CARE(HIGH) Secondary Visit Codes: [id number] CARE PLAN 30 MINUTES FARIBA GRADY MD Jan 28, 2024 14:17
[2024-01-28] MEDS: POTASSIUM CHL 20 Meq TABLET PO ONE (16:31)
[2024-01-28] MEDS: cefTRIAXone 1GM/50ML D5W 50 ML IV SCH (16:32)
[2024-01-28] MEDS: FUROSEMIDE 40 MG TAB PO ONE (16:32)
[2024-01-28] MEDS: Ensure HIGH Protein Chocolate 8oz Bottle PO SCH (18:43)
[2024-01-28] MEDS: methylPREDNISolone SOD SUCC 40 MG/ML VL IV SCH (22:57)
[2024-01-29] VITALS (19 sets, daily range): BP systolic 122–151; BP diastolic 50–71; PULSE 82–107; RESP 16–24; TEMP 97.4–98.9; O2SAT 65–100
[2024-01-29 06:26] LABS: Chloride 103 mmol/L (98-107); Sodium 138 mmol/L (136-145)
[2024-01-29 06:27] LABS: Anion Gap 8 (5-15); Calcium 9.9 mg/dL (8.7-10.4); Carbon Dioxide 27 mmol/L (20-31)
[2024-01-29 06:32] LABS: BUN/Creatinine Ratio 29.8 (10.0-20.0)
[2024-01-29 06:33] LABS: Magnesium 2.4 mg/dL (1.6-2.6)
[2024-01-29 06:42] LABS: Blood Urea Nitrogen 39 mg/dL (9-23); Glucose 108 mg/dL (74-106)
[2024-01-29 06:43] LABS: Potassium 5.6 mmol/L (3.5-5.1)
[2024-01-29] MEDS: SODIUM ZIRCONIUM CYCL 10 GM PAK PO ONE (09:29)
[2024-01-29] MEDS ORDERED: POTASSIUM CHL 20 Meq TABLET PO SCH (10:00)
--- NOTE | 2024-01-29 11:24 | DVHPN2 ---
Subjective The patient is seen and examined at bedside. Very tired. Reviewed: Care Plan, H&P, Labs, Medications, Previous Orders Changes from previous H/P or p: No Changes Objective Vitals Vital Signs Date Time Temp Pulse Resp B/P (MAP) Pulse Ox O2 Delivery O2 Flow Rate FiO2 01/29/24 09:12 97 99 Facial BiPAP Mask 32 01/29/24 09:00 97.5 22 135/50 (78) 97.5 01/29/24 06:37 5 Intake/Output Intake and Output 01/29/24 07:00 Intake Total 1660 ml Output Total 154 ml Balance 1506 ml Intake Oral 1360 ml IV Total 300 ml Output Urine Total 154 ml Stool Total 0 ml # Voids 1 General Appearance: Alert, Cooperative HEENT: Atraumatic, PERRLA, EOMI, Mucous membr. moist/pink Neck: Supple Lungs: Clear to auscultation, Normal air movement Cardiovascular: Regular rate, Normal S1, Normal S2, No murmurs, Gallops, Rubs Abdomen: Normal bowel sounds, Soft, No tenderness Neuro: Cranial nerves 3-12 NL Lymph: Lymphadenopathy Medications Current Medications Medications Dose Ordered Sig/Gilbert Route Start Time Stop Time Status Last Admin Dose Admin Albuterol 2.5 mg Q6HPRN PRN NEB 01/27/24 03:30 01/28/24 02:25 2.5 MG Lisinopril 10 mg DAILY PO 01/27/24 10:00 01/28/24 09:20 10 MG Aspirin 81 mg DAILY PO 01/27/24 10:00 01/28/24 09:21 81 MG Atorvastatin Calcium 40 mg HS PO 01/27/24 22:00 01/28/24 22:57 40 MG Clopidogrel Bisulfate 75 mg DAILY PO 01/27/24 10:00 01/28/24 09:22 75 MG Ondansetron HCl 4 mg Q4HP PRN IV 01/27/24 03:30 Enoxaparin Sodium 40 mg DAILY SC 01/27/24 10:00 01/28/24 09:18 40 MG Acetaminophen 650 mg Q6HP PRN PO 01/27/24 03:30 Nitroglycerin 0.4 mg Q5MINP PRN SL 01/27/24 03:30 Morphine Sulfate 2 mg Q30M PRN IV 01/27/24 03:30 Levalbuterol HCl 1.25 mg Q6HR NEB 01/27/24 12:00 01/29/24 06:37 1.25 MG Ipratropium [place] 0.5 mg Q6HR NEB 01/27/24 12:00 01/29/24 06:37 0.5 MG Morphine Sulfate 1 mg Q4HP PRN IV 01/27/24 10:30 Lorazepam 0.5 mg Q8HP PRN IV 01/28/24 14:15 Methylprednisolone Sodium Succinate 40 mg BID IV 01/28/24 22:00 01/28/24 22:57 40 MG Azithromycin 500 mg DAILY PO 01/29/24 10:00 Ceftriaxone Sodium 50 ml @ 100 mls/hr DAILY@09 IV 01/28/24 15:39 01/29/24 09:29 100 MLS/HR Furosemide 40 mg DAILY PO 01/29/24 10:00 Enteral Nutritional Formula 240 ml BIDWM PO 01/28/24 18:00 01/29/24 08:00 240 ML Laboratory Results Laboratory Tests 01/28/24 05:01 01/29/24 05:45 Chemistry Test 01/29/24 05:45 Calcium Level 9.9 mg/dL (8.7-10.4) Magnesium Level 2.4 mg/dL (1.6-2.6) Labs and/or images reviewed: Labs reviewed by me Assessment/Plan Assessment/Plan #1 acute resp failure: continue bipap, monitor abg #2 copd with exacerbation: continue steroids #3 ?pneumonia: Continuing iv antibiotics #4 htn #6 acute on chronic systolic heart failure: Continuing lasix iv #7 h/o cad #8 nstemi ?type 2 #9 hyperlipidemia Continuing current management. Encouraged the patient to be out of bed and ambulate with physical therapy. Discharge planning. Plan discussed with: Patient Date of Service: Jan 29, 2024 Billing Provider: NATHANIEL KEENE MD Common Visit Codes: [id number] INP/OBS CARE(HIGH) NATHANIEL KEENE MD Jan 29, 2024 11:24
[2024-01-29] MEDS: AZITHROMYCIN 250 MG TAB PO SCH (11:53)
[2024-01-29] MEDS: FUROSEMIDE 40 MG TAB PO SCH (11:54)
[2024-01-29] MEDS: LORazepam 2MG/ML-1ML VIAL IV PRN (23:06)
[2024-01-29] MEDS ORDERED: MELATONIN 5 MG TAB PO SCH (23:55)
[2024-01-30] VITALS (20 sets, daily range): BP systolic 107–133; BP diastolic 63–79; PULSE 56–109; RESP 16–24; TEMP 97.5–97.9; O2SAT 88–100
--- NOTE | 2024-01-30 08:20 | DVHPN2 ---
Subjective The patient is seen and examined at bedside. Very tired. Reviewed: Care Plan, H&P, Labs, Medications, Previous Orders Changes from previous H/P or p: No Changes Objective Vitals Vital Signs Date Time Temp Pulse Resp B/P (MAP) Pulse Ox O2 Delivery O2 Flow Rate FiO2 01/30/24 05:51 56 120/75 92 Facial BiPAP Mask 50 01/30/24 05:00 22 01/30/24 03:44 97.6 97.6 01/29/24 20:00 3 Intake/Output Intake and Output 01/30/24 07:00 Intake Total 1010 ml Output Total 850 ml Balance 160 ml Intake Oral 960 ml IV Total 50 ml Output Urine Total 850 ml General Appearance: Alert, Cooperative HEENT: Atraumatic, PERRLA, EOMI, Mucous membr. moist/pink Neck: Supple Lungs: Clear to auscultation, Normal air movement Cardiovascular: Regular rate, Normal S1, Normal S2, No murmurs, Gallops, Rubs Abdomen: Normal bowel sounds, Soft, No tenderness Neuro: Cranial nerves 3-12 NL Lymph: Lymphadenopathy Medications Current Medications Medications Dose Ordered Sig/Gilbert Route Start Time Stop Time Status Last Admin Dose Admin Albuterol 2.5 mg Q6HPRN PRN NEB 01/27/24 03:30 01/28/24 02:25 2.5 MG Lisinopril 10 mg DAILY PO 01/27/24 10:00 01/29/24 11:53 10 MG Aspirin 81 mg DAILY PO 01/27/24 10:00 01/29/24 11:54 81 MG Atorvastatin Calcium 40 mg HS PO 01/27/24 22:00 01/29/24 21:35 40 MG Clopidogrel Bisulfate 75 mg DAILY PO 01/27/24 10:00 01/29/24 11:54 75 MG Ondansetron HCl 4 mg Q4HP PRN IV 01/27/24 03:30 Enoxaparin Sodium 40 mg DAILY SC 01/27/24 10:00 01/29/24 11:53 40 MG Acetaminophen 650 mg Q6HP PRN PO 01/27/24 03:30 Nitroglycerin 0.4 mg Q5MINP PRN SL 01/27/24 03:30 Morphine Sulfate 2 mg Q30M PRN IV 01/27/24 03:30 Levalbuterol HCl 1.25 mg Q6HR NEB 01/27/24 12:00 01/30/24 05:51 1.25 MG Ipratropium [place] 0.5 mg Q6HR NEB 01/27/24 12:00 01/30/24 05:51 0.5 MG Morphine Sulfate 1 mg Q4HP PRN IV 01/27/24 10:30 Lorazepam 0.5 mg Q8HP PRN IV 01/28/24 14:15 01/29/24 23:06 0.5 MG Methylprednisolone Sodium Succinate 40 mg BID IV 01/28/24 22:00 01/29/24 21:35 40 MG Azithromycin 500 mg DAILY PO 01/29/24 10:00 01/29/24 11:53 500 MG Ceftriaxone Sodium 50 ml @ 100 mls/hr DAILY@09 IV 01/28/24 15:39 01/29/24 09:29 100 MLS/HR Furosemide 40 mg DAILY PO 01/29/24 10:00 01/29/24 11:54 40 MG Enteral Nutritional Formula 240 ml BIDWM PO 01/28/24 18:00 01/29/24 17:50 240 ML Melatonin 5 mg HS PO 01/29/24 23:55 Laboratory Results Laboratory Tests 01/28/24 05:01 01/29/24 05:45 Labs and/or images reviewed: Labs reviewed by me Assessment/Plan Assessment/Plan #1 acute resp failure: continue bipap, monitor abg #2 copd with exacerbation: continue steroids #3 ?pneumonia: Continuing iv antibiotics #4 htn #6 acute on chronic systolic heart failure: Continuing lasix iv #7 h/o cad #8 nstemi ?type 2 #9 hyperlipidemia #10: Hyperkalemia. Will give one dose of Lokema. Will follow up with K in am. Continuing current management. Encouraged the patient to be out of bed and ambulate with physical therapy. Discharge planning. This medical document was created using an electronic medical record system with [employer] direct computerized dictation system. Although this document has been carefully reviewed, there may still be some phonetic and typographical errors. These areas are purely typographical due to imperfections of the software programs, and do not reflect any compromise in the patient's medical care. Plan discussed with: Patient Date of Service: Jan 30, 2024 Billing Provider: NATHANIEL KEENE MD Common Visit Codes: [id number] INP/OBS CARE(HIGH) NATHANIEL KEENE MD Jan 30, 2024 08:20
[2024-01-31] VITALS (15 sets, daily range): BP systolic 104–125; BP diastolic 57–79; PULSE 68–125; RESP 16–28; TEMP 97.5–98.1; O2SAT 84–100
[2024-01-31 01:30] LABS: Basophils # (auto) 0 10 ^3/uL (0-0.2); Eosinophils # (auto) 0 10 ^3/uL (0-0.8); Hemoglobin 15.7 g/dL (13.5-17.5); Lymphocytes # (auto) 0.1 10 ^3/uL (0.4-5.4); Monocytes # (auto) 0.9 10 ^3/uL (0-1.3); Neutrophils # (auto) 8.2 10 ^3/uL (1.6-8.6); Red Blood Cells 4.57 10^6/uL (4.5-5.90)
[2024-01-31 01:32] LABS: Basophils % (auto) 0.2 % (0.0-2.0); Hematocrit 46.5 % (41.0-53.0); Lymphocytes % (auto) 1.3 % (10.0-50.0); Mean Corpuscular Hemoglobin 34.2 pg (28.0-32.0); Mean Corpuscular Hgb Conc. 33.6 g/dL (32.0-36.0); Mean Corpuscular Volume 101.8 fL (80.0-100.0); Monocytes % (auto) 9.9 % (0.0-12.0); Neutrophils % (auto) 88.6 % (37.0-80.0); Platelet Count (auto) 150 10^3/uL (140-450); Red Cell Distribution Width 13.9 % (11.8-14.3); White Blood Cell 9.3 10^3/uL (4.4-10.8)
[2024-01-31 01:42] LABS: Albumin 4.3 g/dL (3.2-4.8); Alkaline Phosphatase 99 U/L (46-116); Anion Gap 6 (5-15); BUN/Creatinine Ratio 50.3 (10.0-20.0); Bilirubin, Total 0.5 mg/dL (0.2-1.0); Calcium 10.2 mg/dL (8.7-10.4); Chloride 99 mmol/L (98-107); Sodium 139 mmol/L (136-145); Total Protein 7.2 g/dL (5.7-8.2)
[2024-01-31 02:08] LABS: Carbon Dioxide 34 mmol/L (20-31)
[2024-01-31 02:09] LABS: Alanine Aminotransferase 60 U/L (7-40); Aspartate Aminotransferase 98 U/L (13-40); Blood Urea Nitrogen 79 mg/dL (9-23); Glucose 206 mg/dL (74-106)
[2024-01-31 02:14] LABS: Potassium 5.7 mmol/L (3.5-5.1)
[2024-01-31 02:28] LABS: Urine Bacteria None Seen /hpf (None Seen)
[2024-01-31 02:46] LABS: Urine Blood Negative /uL (Negative); Urine Clarity Clear (Clear); Urine Color Light-Yellow (Yellow); Urine Protein, UAD Negative (Negative); Urine Specific Gravity 1.015 (1.001-1.035); Urine Urobilinogen Normal (Negative); Urine WBC <1 /hpf (0 - 3)
[2024-01-31] MEDS: SODIUM ZIRCONIUM CYCL 10 GM PAK PO ONE ×2 (02:46→11:04)
[2024-01-31] MEDS: MORPHINE SULFATE INJ 2 MG/ml SYRG IV PRN (02:48)
--- NOTE | 2024-01-31 12:56 | DVHPN2 ---
Subjective The patient is seen and examined at bedside. No new complaint today. Still remained tired. Potassium still high despite getting Lokema. Reviewed: Care Plan, H&P, Labs, Medications, Previous Orders Changes from previous H/P or p: No Changes Objective Vitals Vital Signs Date Time Temp Pulse Resp B/P (MAP) Pulse Ox O2 Delivery O2 Flow Rate FiO2 01/31/24 11:38 108 28 99 01/31/24 11:32 Nasal Cannula* 4 36 01/31/24 08:52 97.6 125/66 (85) 97.6 Intake/Output Intake and Output 01/31/24 07:00 Intake Total 3089 ml Output Total 500 ml Balance 2589 ml Intake Oral 3039 ml IV Total 50 ml Output Urine Total 500 ml Stool Total 0 ml # Voids 6 General Appearance: Alert, Cooperative HEENT: Atraumatic, PERRLA, EOMI, Mucous membr. moist/pink Neck: Supple Lungs: Clear to auscultation, Normal air movement Cardiovascular: Regular rate, Normal S1, Normal S2, No murmurs, Gallops, Rubs Abdomen: Normal bowel sounds, Soft, No tenderness Neuro: Cranial nerves 3-12 NL Lymph: Lymphadenopathy Medications Current Medications Medications Dose Ordered Sig/Gilbert Route Start Time Stop Time Status Last Admin Dose Admin Albuterol 2.5 mg Q6HPRN PRN NEB 01/27/24 03:30 01/28/24 02:25 2.5 MG Lisinopril 10 mg DAILY PO 01/27/24 10:00 01/31/24 08:49 10 MG Aspirin 81 mg DAILY PO 01/27/24 10:00 01/31/24 08:48 81 MG Atorvastatin Calcium 40 mg HS PO 01/27/24 22:00 01/30/24 22:02 40 MG Clopidogrel Bisulfate 75 mg DAILY PO 01/27/24 10:00 01/31/24 10:20 75 MG Ondansetron HCl 4 mg Q4HP PRN IV 01/27/24 03:30 Enoxaparin Sodium 40 mg DAILY SC 01/27/24 10:00 01/31/24 10:20 40 MG Acetaminophen 650 mg Q6HP PRN PO 01/27/24 03:30 Nitroglycerin 0.4 mg Q5MINP PRN SL 01/27/24 03:30 Morphine Sulfate 2 mg Q30M PRN IV 01/27/24 03:30 Levalbuterol HCl 1.25 mg Q6HR NEB 01/27/24 12:00 01/31/24 11:32 1.25 MG Ipratropium [place] 0.5 mg Q6HR NEB 01/27/24 12:00 01/31/24 11:32 0.5 MG Morphine Sulfate 1 mg Q4HP PRN IV 01/27/24 10:30 01/31/24 02:48 1 MG Lorazepam 0.5 mg Q8HP PRN IV 01/28/24 14:15 01/30/24 13:56 0.5 MG Methylprednisolone Sodium Succinate 40 mg BID IV 01/28/24 22:00 01/31/24 08:47 40 MG Azithromycin 500 mg DAILY PO 01/29/24 10:00 01/31/24 08:47 500 MG Ceftriaxone Sodium 50 ml @ 100 mls/hr DAILY@09 IV 01/28/24 15:39 01/31/24 08:47 100 MLS/HR Furosemide 40 mg DAILY PO 01/29/24 10:00 01/31/24 08:48 40 MG Enteral Nutritional Formula 240 ml BIDWM PO 01/28/24 18:00 01/31/24 08:00 240 ML Laboratory Results Laboratory Tests 01/31/24 01:14 01/31/24 08:26 Chemistry Test 01/31/24 01:14 Albumin 4.3 g/dL (3.2-4.8) Calcium Level 10.2 mg/dL (8.7-10.4) Total Protein 7.2 g/dL (5.7-8.2) LFT Test 01/31/24 01:14 Alanine Aminotransferase (ALT) 60 U/L (7-40) H Alkaline Phosphatase 99 U/L (46-116) Aspartate Amino Transferase (AST) 98 U/L (13-40) H Total Bilirubin 0.5 mg/dL (0.2-1.0) Urinalysis Test 01/31/24 02:25 Urine Color Light-yellow (Yellow) Urine Clarity Clear (Clear) Urine pH 5.0 (5.0-9.0) Urine Specific [place] 1.015 (1.001-1.035) Urine Protein Negative (Negative) Urine Ketones Negative (Negative) Urine Blood Negative /uL (Negative) Urine Nitrite Negative (Negative) Urine Bilirubin Negative (Negative) Urine Urobilinogen Normal mg/dL (Negative) Urine Leukocyte Esterase Negative /uL (Negative) Urine RBC 1 /hpf (0 - 3) Urine WBC <1 /hpf (0 - 3) Urine Squamous Epithelial Cells Few /hpf (<5) Urine Bacteria None seen /hpf (None Seen) Urine Glucose Normal mg/dL (Normal) Labs and/or images reviewed: Labs reviewed by me Assessment/Plan Assessment/Plan #1 acute resp failure: continue bipap, monitor abg #2 copd with exacerbation: continue steroids #3 ?pneumonia: Continuing iv antibiotics #4 htn #6 acute on chronic systolic heart failure: Continuing lasix iv #7 h/o cad #8 nstemi ?type 2 #9 hyperlipidemia #10: Hyperkalemia. Will give another dose of Lokema. We will consult [employer]. Will follow up with K in am. Continuing current management. Encouraged the patient to be out of bed and ambulate with physical therapy. Discharge planning. This medical document was created using an electronic medical record system with [employer] direct computerized dictation system. Although this document has been carefully reviewed, there may still be some phonetic and typographical errors. These areas are purely typographical due to imperfections of the software programs, and do not reflect any compromise in the patient's medical care. Plan discussed with: Other (Rn) My Orders Orders - NATHANIEL KEENE MD Procedure Category Date Status Time Complete Blood Count LAB 02/01/24 Verified 05:00 Basic Metabolic Panel LAB 02/01/24 Verified 05:00 *Dr. Kisha Emery -Da CONS 01/31/24 Transmitted Maria T 10:15 Date of Service: Jan 31, 2024 Billing Provider: NATHANIEL KEENE MD Common Visit Codes: [id number] INP/OBS CARE(HIGH) NATHANIEL KEENE MD Jan 31, 2024 12:56
--- NOTE | 2024-01-31 14:07 | DVHINCON2 ---
Date of service: Jan 31, [address] Marla Jones Reason for Consultation Elevated creatinine and hyperkalemia History of Present Illness This is a 83-year-old male with history of CKD stage 3, congestive heart failure with echocardiogram showing an EF of 35%, COPD presenting to the emergency room because of shortness of breaths. In the ER patient noted to be hypoxic with oxygen saturation of 81% on room air. Subsequently placed on BiPAP. Empirically started on antibiotics and IV Solu-Medrol and med nebs. Chest x-ray with evidence of emphysema changes Nephrology has been consulted because of rising creatinine and hyperkalemia. Past Medical History As stated above Past Surgical History Hernia repair Status post percutaneous intervention of the coronaries Family History: Alcoholism G8 MOTHER FH: congestive heart failure G8 FATHER Family history: Cardiovascular disease G8 FATHER G8 BROTHER Social History No active history of smoking, alcohol or drug abuse Allergies: Coded Allergies: NO KNOWN ALLERGIES (Unverified , 03/18/16) Home Meds Active Scripts Cefuroxime Axetil (Cefuroxime Axetil) 500 Mg Tab, 1 TAB PO BID for 10 Days, #20 TAB Prov:MERRILL MUNGUIA PAC 06/12/23 Albuterol Sulfate (VENTOLIN MDI) 90 Mcg Ih, 90 MCG IN QIDP PRN for 30 Days, #1 INH 1 Refill Prov:FARIBA GRADY MD 02/17/23 Prednisone (Prednisone) 20 Mg Tab, 20 MG PO QAM for 5 Days, #10 MG Prov:FARIBA GRADY MD 02/17/23 Azithromycin (Azithromycin) 250 Mg Tab, 250 MG PO DAILY for 4 Days, #4 TAB Prov:FARIBA GRADY MD 02/17/23 Sucralfate (CARAFATE) 1 Gm Tab, 1 GM OR BID for 7 Days, #14 TAB Prov:JIMMIE TRUONG DO 03/06/22 Reported Medications Clopidogrel Bisulfate (CLOPIDOGREL) 75 Mg Tab, 1 TAB PO DAILY 02/12/23 Citalopram Hydrobromide (Citalopram Hydrobromide) 20 Mg Tab, 1 TAB PO DAILY 02/12/23 Atorvastatin Calcium (ATORVASTATIN CALCIUM) 40 Mg Tab, 1 TAB PO DAILY 02/12/23 Pravastatin Sodium (PRAVACHOL TABLET) 20 Mg Tb, 40 MG PO QPM, #90 TAB 1 Refill 03/18/16 Clopidogrel Bisulfate (Plavix) 75 Mg Tab, 1 TAB PO DAILY, #90 TAB 1 Refill 03/18/16 Aspirin (Asa) 81 Mg Ch, 81 MG GT DAILY 03/18/16 Review of Systems 12 point review of system negative except as stated in the HPI Vital Signs Vital Signs Date Time Temp Pulse Resp B/P (MAP) Pulse Ox O2 Delivery O2 Flow Rate FiO2 01/31/24 13:00 97.5 109 20 117/73 (88) 99 97.5 01/31/24 11:32 Nasal Cannula* 4 36 Physical Exam frail , elderly male HEENT: Normocephalic, no JVD Lungs: Diminished breath sounds bilaterally CVS: S1, S2 regular rate rhythm Abdomen: Soft, bowel sounds present CAR HOPPER: No focal deficits Extremities: No edema Labs/Diagnostic Data Labs Test 01/31/24 08:26 01/31/24 02:25 01/31/24 01:14 01/29/24 05:45 Range/Units Potassium Level 6.1 *H 3.5-5.1 mmol/L Urine Color Light-yellow Yellow Urine Clarity Clear Clear Urine pH 5.0 5.0-9.0 Urine Specific [place] 1.015 1.001-1.035 Urine Protein Negative Negative Urine Ketones Negative Negative Urine Blood Negative Negative /uL Urine Nitrite Negative Negative Urine Bilirubin Negative Negative Urine Urobilinogen Normal Negative mg/dL Urine Leukocyte Esterase Negative Negative /uL Urine RBC 1 0 - 3 /hpf Urine WBC <1 0 - 3 /hpf Urine Squamous Epithelial Cells Few <5 /hpf Urine Bacteria None seen None Seen /hpf Urine Glucose Normal Normal mg/dL White Blood Count 9.3 # 4.4-10.8 10^3/uL Red Blood Count 4.57 4.5-5.90 10^6/uL Hemoglobin 15.7 13.5-17.5 g/dL Hematocrit 46.5 41.0-53.0 % Mean Corpuscular Volume 101.8 H 80.0-100.0 fL Mean Corpuscular Hemoglobin 34.2 H 28.0-32.0 pg Mean Corpuscular Hemoglobin Concent 33.6 32.0-36.0 g/dL Red Cell Distribution Width 13.9 11.8-14.3 % Platelet Count 150 140-450 10^3/uL Mean Platelet Volume 8.4 6.9-10.8 fL Neutrophils (%) (Auto) 88.6 H 37.0-80.0 % Lymphocytes (%) (Auto) 1.3 L 10.0-50.0 % Monocytes (%) (Auto) 9.9 0.0-12.0 % Eosinophils (%) (Auto) 0.0 0.0-7.0 % Basophils (%) (Auto) 0.2 0.0-2.0 % Neutrophils # (Auto) 8.2 1.6-8.6 10 ^3/uL Lymphocytes # (Auto) 0.1 L 0.4-5.4 10 ^3/uL Monocytes # (Auto) 0.9 0-1.3 10 ^3/uL Eosinophils # (Auto) 0 0-0.8 10 ^3/uL Basophils # (Auto) 0 0-0.2 10 ^3/uL Nucleated Red Blood Cells 0.0 % Sodium Level 139 136-145 mmol/L Chloride Level 99 98-107 mmol/L Carbon Dioxide Level 34 H 20-31 mmol/L Anion Gap 6 5-15 Blood Urea Nitrogen 79 H 9-23 mg/dL Creatinine 1.57 H 0.700-1.30 mg/dL Glomerular Filtration Rate Calc 44 >90 mL/min BUN/Creatinine Ratio 50.3 H 10.0-20.0 Serum Glucose 206 H 74-106 mg/dL Calcium Level 10.2 8.7-10.4 mg/dL Total Bilirubin 0.5 0.2-1.0 mg/dL Aspartate Amino Transferase (AST) 98 H 13-40 U/L Alanine Aminotransferase (ALT) 60 H 7-40 U/L Alkaline Phosphatase 99 46-116 U/L Total Protein 7.2 5.7-8.2 g/dL Albumin 4.3 3.2-4.8 g/dL Magnesium Level 2.4 1.6-2.6 mg/dL Test 01/28/24 10:00 01/27/24 20:20 01/27/24 15:38 01/27/24 12:57 Range/Units Blood Gas Specimen Type Arterial Blood Gas Sample Site Left radial Blood Gas Patient Temperature 37.0 Arterial Blood Date Drawn [id number] Arterial Blood pH 7.339 L 7.350-7.450 Arterial Blood Partial Pressure CO2 37.9 35.0-48.0 mmHg Arterial Blood Partial Pressure O2 133.1 H 83.0-108.0 mmHg Arterial Blood HCO3 19.9 L 21.0-28.0 mmol/L Arterial Blood Oxygen Saturation 98.5 H 94.0-98.0 % Arterial Blood Base Excess -5.3 L -2.0-3.0 mmol/L Arterial Blood Oxyhemoglobin 97.2 94.0-98.0 % Arterial Blood Carboxyhemoglobin 1.1 0.5-1.5 % Arterial Blood Methemoglobin 0.2 0.0-1.5 % Shailesh Test Yes Blood Gas Total Hemoglobin 14.30 13.5-17.5 g/dL Blood Gas Liter Flow 3.00 Blood Gas Modality Nasal cannula FiO2 % 32.0 Blood Gas EPAP 5 Blood Gas IPAP 10 Blood Gas Set Respiration Rate 16.0 Blood Gas Critical Value Read Back Yes Blood Gas Notified Whom Dr shan grady Blood Gas Notified Time [id number] Blood Gas Notified By Sheet Metal Smith tyra hoyos Test 01/27/24 02:38 01/27/24 00:37 01/26/24 21:57 01/26/24 21:45 Range/Units Influenza Type A Antigen Negative Negative Influenza Type B Antigen Negative Negative SARS-CoV-2 Antigen (Rapid) Negative NEGATIVE Troponin I High Sensitivity 71 *H </=54 ng/L Blood Gas Spontaneous Rate 39 Blood Gas Spontaneous Tidal Volume 430 B-Type Natriuretic Peptide 257.59 0-100 pg/mL Assessment CKD stage 3 a multifactorial including cardiorenal syndrome and hypertensive nephrosclerosis. Now with worsening GFR probably related to over-diuresis. Hyperkalemia Acute on chronic systolic heart failure History of coronary artery disease status post PCI COPD exacerbation Hypertension Hyperlipidemia Plan/Recommendation Discontinue lisinopril in light of persistent hyperkalemia. Patient has been given Lokelma We will follow up on the labs. Hold Lasix for now.[Patient's oral intake has been extremely poor.] Continue with med nebs and IV Solu-Medrol Plan discussed with: Patient ALLEGRA VOGEL MD Jan 31, 2024 14:07
[2024-02-01] VITALS (17 sets, daily range): BP systolic 112–152; BP diastolic 63–84; PULSE 99–123; RESP 14–83; TEMP 97.3–98.1; O2SAT 91–100
[2024-02-01 07:11] LABS: Basophils # (auto) 0 10 ^3/uL (0-0.2); Eosinophils # (auto) 0 10 ^3/uL (0-0.8); Lymphocytes # (auto) 0.1 10 ^3/uL (0.4-5.4); Monocytes # (auto) 0.5 10 ^3/uL (0-1.3); Platelet Count (auto) 112 10^3/uL (140-450)
[2024-02-01 07:12] LABS: Calcium 10.1 mg/dL (8.7-10.4); Chloride 99 mmol/L (98-107); Sodium 139 mmol/L (136-145)
[2024-02-01 07:13] LABS: Basophils % (auto) 0.1 % (0.0-2.0); Eosinophils % (auto) 0.1 % (0.0-7.0); Hematocrit 41.8 % (41.0-53.0); Hemoglobin 14.5 g/dL (13.5-17.5); Lymphocytes % (auto) 1.4 % (10.0-50.0); Mean Corpuscular Hemoglobin 35.6 pg (28.0-32.0); Mean Corpuscular Hgb Conc. 34.7 g/dL (32.0-36.0); Mean Corpuscular Volume 102.5 fL (80.0-100.0); Monocytes % (auto) 6.5 % (0.0-12.0); Neutrophils # (auto) 6.7 10 ^3/uL (1.6-8.6); Neutrophils % (auto) 91.9 % (37.0-80.0); Red Blood Cells 4.08 10^6/uL (4.5-5.90); Red Cell Distribution Width 13.5 % (11.8-14.3); White Blood Cell 7.3 10^3/uL (4.4-10.8)
[2024-02-01 07:19] LABS: BUN/Creatinine Ratio 55.9 (10.0-20.0)
[2024-02-01 08:10] LABS: Potassium 5.8 mmol/L (3.5-5.1)
[2024-02-01 08:11] LABS: Anion Gap 6 (5-15); Blood Urea Nitrogen 76 mg/dL (9-23); Carbon Dioxide 34 mmol/L (20-31); Glucose 132 mg/dL (74-106)
[2024-02-01] MEDS: FUROSEMIDE 40 MG TAB PO SCH (09:06)
[2024-02-01] MEDS ORDERED: SODIUM ZIRCONIUM CYCL 10 GM PAK PO ONE (10:00)
--- NOTE | 2024-02-01 10:19 | CONS ---
Pharmacy Clinical Information: From [facility] Heart Failure Fallout Report, Wander Moscoso is a 83 year old male with PMH of COPD, CKD stage 3, DE, Dyslipidemia, CHF ( LVEF 35%). His home medications for heart failure include lisinopril. MRA and ACEi/ARB/ARNi not recommended due to hyperkalemia. SGLT2i not recommended due to over diuresis and renal insufficiency. Consider cardioselective BB once patient is hemodynamically stable and oral intake improves. KARTHIK RAE PHARMACIST Feb 01, 2024 10:19
--- NOTE | 2024-02-01 10:35 | DVHPN2 ---
Progress Note Date Seen: Feb 01, 2024 Medical Necessity Reason Pt with a Central, PICC or Fol: No Subjective Patient reports: No new complaints Review of Systems: HEENT:Normal, CVS:Normal, RESPIRATORY:Normal, GI:Normal, :Normal, MSK:Normal, NEURO:Normal Objective vital signs Vital Sign Date Time Temp Pulse Resp B/P (MAP) Pulse Ox O2 Delivery O2 Flow Rate FiO2 02/01/24 09:06 134/84 02/01/24 09:00 97.5 114 24 94 97.5 02/01/24 07:30 Nasal Cannula* 4 36 Total Intake and Output 01/31/24 01/31/24 02/01/24 15:00 23:00 07:00 Intake Total 460 ml 1620 ml 250 ml Output Total 400 ml 1 ml Balance 460 ml 1220 ml 249 ml medications Current Medications Medications Dose Ordered Sig/Gilbert Route Start Time Stop Time Status Last Admin Dose Admin Aspirin 81 mg DAILY PO 01/27/24 10:00 02/01/24 09:06 81 MG Atorvastatin Calcium 40 mg HS PO 01/27/24 22:00 01/31/24 21:49 40 MG Clopidogrel Bisulfate 75 mg DAILY PO 01/27/24 10:00 02/01/24 09:06 75 MG Ondansetron HCl 4 mg Q4HP PRN IV 01/27/24 03:30 Enoxaparin Sodium 40 mg DAILY SC 01/27/24 10:00 02/01/24 09:06 40 MG Acetaminophen 650 mg Q6HP PRN PO 01/27/24 03:30 Nitroglycerin 0.4 mg Q5MINP PRN SL 01/27/24 03:30 Morphine Sulfate 2 mg Q30M PRN IV 01/27/24 03:30 Levalbuterol HCl 1.25 mg Q6HR NEB 01/27/24 12:00 02/01/24 06:03 1.25 MG Ipratropium [place] 0.5 mg Q6HR NEB 01/27/24 12:00 02/01/24 06:03 0.5 MG Morphine Sulfate 1 mg Q4HP PRN IV 01/27/24 10:30 01/31/24 02:48 1 MG Lorazepam 0.5 mg Q8HP PRN IV 01/28/24 14:15 02/01/24 09:05 0.5 MG Methylprednisolone Sodium Succinate 40 mg BID IV 01/28/24 22:00 02/01/24 09:05 40 MG Azithromycin 500 mg DAILY PO 01/29/24 10:00 02/01/24 09:06 500 MG Ceftriaxone Sodium 50 ml @ 100 mls/hr DAILY@09 IV 01/28/24 15:39 02/01/24 09:05 100 MLS/HR Enteral Nutritional Formula 240 ml BIDWM PO 01/28/24 18:00 02/01/24 09:05 240 ML Furosemide 40 mg DAILY PO 02/01/24 10:00 Examination: GENERAL:Normal, HEENT:Normal, NECK:Normal, LUNGS:Normal, LUNGS:Abnormal (on oxygen), CVS:Normal, ABDOMEN:Normal, MSK:Normal, SKIN:Normal, NEURO:Normal, :Normal laboratory and microbiology Laboratory Tests 02/01/24 05:43 Test 02/01/24 05:43 Range/Units Serum Glucose 132 H 74-106 mg/dL Problem List/Assessment/Plan Problem List/Assessment/Plan #1 acute resp failure: cont bipap, abg #2 copd with exacerbation: cont steroids #3 ?pneumonia: iv antibiotics #4 htn #6 acute on chronic systolic heart failure: dc lasix #7 h/o cad #8 nstemi ?type 2 #9 hyperlipidemia #10 hyperkalemia: lokelma #11 acute renal failure ?vasomotor nephropathy: ivf advance care planning- full code- time spent 21 mins Plan discussed with: Patient Dietary Evaluation Review Comments: 1. Continue Ensure HP BID 2. Continue current diet 3. Consider increase Ensure HP to TID if pt intake trends low Expected Outcomes/Goals: 1. Pt will consume >75% of estimated needs within 3-5 days Date of Service: Feb 01, 2024 Billing Provider: FARIBA GRADY MD Common Visit Codes: [id number] INP/OBS CARE(HIGH) Secondary Visit Codes: [id number] CARE PLAN 30 MINUTES FARIBA GRADY MD Feb 01, 2024 10:35
[2024-02-01 11:05] LABS: Base Excess 7.3 mmol/L (-2.0-3.0)
[2024-02-01] MEDS: SODIUM ZIRCONIUM CYCL 10 GM PAK PO ONE (11:47)
[2024-02-01] MEDS: D5W/SOD CHL 0.45% 1,000 ML IV SCH (11:47)
--- NOTE | 2024-02-01 13:29 | DVHPN2 ---
Progress Note - Dictate Date Seen: Feb 01, 2024 Medical Necessity Reason Pt with a Central, PICC or Fol: No Subjective Patient is sleeping no complaints. No bowel movements. Patient has been urinary incontinent. He is comfortably sleeping. vital signs Vital Sign Date Time Temp Pulse Resp B/P (MAP) Pulse Ox O2 Delivery O2 Flow Rate FiO2 02/01/24 12:20 109 16 97 02/01/24 09:06 134/84 02/01/24 09:00 97.5 97.5 02/01/24 07:30 Nasal Cannula* 4 36 Total Intake and Output 01/31/24 01/31/24 02/01/24 15:00 23:00 07:00 Intake Total 460 ml 1620 ml 250 ml Output Total 400 ml 1 ml Balance 460 ml 1220 ml 249 ml medications Current Medications Medications Dose Ordered Sig/Gilbert Route Start Time Stop Time Status Last Admin Dose Admin Aspirin 81 mg DAILY PO 01/27/24 10:00 02/01/24 09:06 81 MG Atorvastatin Calcium 40 mg HS PO 01/27/24 22:00 01/31/24 21:49 40 MG Clopidogrel Bisulfate 75 mg DAILY PO 01/27/24 10:00 02/01/24 09:06 75 MG Ondansetron HCl 4 mg Q4HP PRN IV 01/27/24 03:30 Enoxaparin Sodium 40 mg DAILY SC 01/27/24 10:00 02/01/24 09:06 40 MG Acetaminophen 650 mg Q6HP PRN PO 01/27/24 03:30 Nitroglycerin 0.4 mg Q5MINP PRN SL 01/27/24 03:30 Morphine Sulfate 2 mg Q30M PRN IV 01/27/24 03:30 Levalbuterol HCl 1.25 mg Q6HR NEB 01/27/24 12:00 02/01/24 12:07 1.25 MG Ipratropium [place] 0.5 mg Q6HR NEB 01/27/24 12:00 02/01/24 12:07 0.5 MG Morphine Sulfate 1 mg Q4HP PRN IV 01/27/24 10:30 01/31/24 02:48 1 MG Lorazepam 0.5 mg Q8HP PRN IV 01/28/24 14:15 02/01/24 09:05 0.5 MG Azithromycin 500 mg DAILY PO 01/29/24 10:00 02/01/24 09:06 500 MG Ceftriaxone Sodium 50 ml @ 100 mls/hr DAILY@09 IV 01/28/24 15:39 02/01/24 09:05 100 MLS/HR Enteral Nutritional Formula 240 ml BIDWM PO 01/28/24 18:00 02/01/24 09:05 240 ML Prednisone 40 mg DAILY PO 02/02/24 10:00 Dextrose/Sodium Chloride 1,000 ml @ 50 mls/hr Q20H IV 02/01/24 10:30 02/01/24 11:47 50 MLS/HR Zirconium Oxide 10 gm Q8HR PO 02/01/24 14:00 objective HEENT: No evidence of JVD, no oral ulcers. In no distress, sleeping. Pulmonary: Lungs are clear on auscultation bilaterally Cardiovascular S1-S2, no S3 or S4 Abdomen: Bowel sounds positive, soft no rebound tenderness Skin: No rash Neurological: Alert, oriented, no focal weakness Diminished muscle mass noticed. laboratory and microbiology Laboratory Tests 02/01/24 05:43 Test 02/01/24 05:43 Range/Units Serum Glucose 132 H 74-106 mg/dL Assessment/Plan Assessment: Acute kidney injury on CKD stage 3 a multifactorial including cardiorenal syndrome and hypertensive nephrosclerosis. Likely from over-diuresis. Hyperkalemia Alkalemia, likely compensating for chronic hypercarbia Acute on chronic systolic heart failure History of coronary artery disease status post PCI COPD exacerbation Chronic hypercapnic respiratory failure Hypertension Hyperlipidemia Constipation Plan/Recommendation Hyperkalemia protocol including Lokelma, insulin, dextrose, calcium gluconate. Bowel regimen to make sure he has bowel movements. Avoid Fleet enema we will start tap water enema. Hold Lasix Obtain renal ultrasound rule out renal retention Low-potassium diet We will follow up on the labs. Hold Lasix for now.[Patient's oral intake has been extremely poor.] Continue with med nebs and IV Solu-Medrol Thank you very much for allowing us to participate in the care of this patient. Dietary Evaluation Review Comments: 1. Continue Ensure HP BID 2. Continue current diet 3. Consider increase Ensure HP to TID if pt intake trends low Expected Outcomes/Goals: 1. Pt will consume >75% of estimated needs within 3-5 days Plan discussed with: Patient HERMINIO DORMAN MD Feb 01, 2024 13:29
--- NOTE | 2024-02-01 14:17 | DVH ---
RENAL ULTRASOUND CLINICAL HISTORY: retention. TECHNIQUE: Multiple ultrasound images of the kidneys and bladder were obtained. COMPARISON: US KIDNEY on DOS: 02/13/23 FINDINGS: The right kidney measures 9.3 cm in length. The left kidney is surgically absent. There is mild right renal pelviectasis. There is no sonographic evidence nephrolithiasis. The bladder appears within normal limits without significant wall thickening. IMPRESSION: 1. Left nephrectomy. 2. Mild right renal pelviectasis without sonographic evidence of nephrolithiasis. HS:Y
[2024-02-01] MEDS: SODIUM ZIRCONIUM CYCL 10 GM PAK PO SCH (14:49)
[2024-02-01] MEDS: DEXTROSE (50%) 50ML SYRG IV ONE (14:49)
[2024-02-01] MEDS: CALCIUM GLUC 1,000mg/50ml-NS 50 ML IV ONE (14:49)
[2024-02-01] MEDS: InsuLIN REG 1unit/0.01ml Soln (100units/ml) IV ONE (14:53)
[2024-02-02] VITALS (18 sets, daily range): BP systolic 121–138; BP diastolic 62–86; PULSE 99–135; RESP 16–81; TEMP 97–98.3; O2SAT 90–100
--- NOTE | 2024-02-02 06:59 | DVH ---
CHEST RADIOGRAPH Indication: COPD Technique: Single frontal view of the chest was obtained Comparison: XY CHEST PORTABLE on DOS: 01/28/24 FINDINGS: Lung apices are excluded from the field of view limiting the evaluation. Lines and Tubes: None Lungs: The lungs are hyperinflated. Bilateral opacities. Pleura: No effusion. No pneumothorax. Cardiomediastinal contours: Unremarkable Bones: No acute osseous abnormality. IMPRESSION: 1. Diffuse bilateral opacities.
[2024-02-02 07:24] LABS: Basophils # (auto) 0 10 ^3/uL (0-0.2); Eosinophils # (auto) 0 10 ^3/uL (0-0.8); Lymphocytes # (auto) 0.2 10 ^3/uL (0.4-5.4); Monocytes # (auto) 0.8 10 ^3/uL (0-1.3)
[2024-02-02 07:27] LABS: Albumin 3.6 g/dL (3.2-4.8); Alkaline Phosphatase 86 U/L (46-116); Anion Gap 4 (5-15); BUN/Creatinine Ratio 60.2 (10.0-20.0); Bilirubin, Total 0.4 mg/dL (0.2-1.0); Calcium 10.1 mg/dL (8.7-10.4); Chloride 98 mmol/L (98-107); Potassium 4.9 mmol/L (3.5-5.1); Sodium 141 mmol/L (136-145)
[2024-02-02 07:28] LABS: Basophils % (auto) 0.1 % (0.0-2.0); Hemoglobin 13.3 g/dL (13.5-17.5); Lymphocytes % (auto) 3.3 % (10.0-50.0); Mean Corpuscular Hemoglobin 34.4 pg (28.0-32.0); Mean Corpuscular Hgb Conc. 34.1 g/dL (32.0-36.0); Mean Corpuscular Volume 100.9 fL (80.0-100.0); Monocytes % (auto) 10.9 % (0.0-12.0); Neutrophils # (auto) 5.9 10 ^3/uL (1.6-8.6); Neutrophils % (auto) 85.7 % (37.0-80.0); Platelet Count (auto) 118 10^3/uL (140-450); Red Blood Cells 3.86 10^6/uL (4.5-5.90); Red Cell Distribution Width 13.1 % (11.8-14.3); White Blood Cell 6.9 10^3/uL (4.4-10.8)
[2024-02-02 07:41] LABS: Alanine Aminotransferase 59 U/L (7-40); Aspartate Aminotransferase 66 U/L (13-40); Blood Urea Nitrogen 65 mg/dL (9-23); Carbon Dioxide 39 mmol/L (20-31); Glucose 169 mg/dL (74-106)
[2024-02-02] MEDS: predniSONE 20 MG TAB PO SCH (09:34)
--- NOTE | 2024-02-02 10:07 | DVHPN2 ---
Progress Note Date Seen: Feb 02, 2024 Medical Necessity Reason Pt with a Central, PICC or Fol: No Subjective Patient reports: No new complaints Review of Systems: HEENT:Normal, CVS:Normal, RESPIRATORY:Normal, GI:Normal, :Normal, MSK:Normal, NEURO:Normal Objective vital signs Vital Sign Date Time Temp Pulse Resp B/P (MAP) Pulse Ox O2 Delivery O2 Flow Rate FiO2 02/02/24 09:38 99 20 95 2.0 02/02/24 09:00 97.5 131/83 (99) 97.5 02/02/24 07:30 Nasal Cannula* 32 Total Intake and Output 02/01/24 02/01/24 02/02/24 15:00 23:00 07:00 Intake Total 50 ml 990 ml 200 ml Output Total 725 ml 1100 ml Balance 50 ml 265 ml -900 ml medications Current Medications Medications Dose Ordered Sig/Gilbert Route Start Time Stop Time Status Last Admin Dose Admin Aspirin 81 mg DAILY PO 01/27/24 10:00 02/02/24 09:34 81 MG Atorvastatin Calcium 40 mg HS PO 01/27/24 22:00 02/01/24 21:45 40 MG Clopidogrel Bisulfate 75 mg DAILY PO 01/27/24 10:00 02/02/24 09:34 75 MG Ondansetron HCl 4 mg Q4HP PRN IV 01/27/24 03:30 Enoxaparin Sodium 40 mg DAILY SC 01/27/24 10:00 02/02/24 09:34 40 MG Acetaminophen 650 mg Q6HP PRN PO 01/27/24 03:30 Nitroglycerin 0.4 mg Q5MINP PRN SL 01/27/24 03:30 Morphine Sulfate 2 mg Q30M PRN IV 01/27/24 03:30 Levalbuterol HCl 1.25 mg Q6HR NEB 01/27/24 12:00 02/02/24 06:05 1.25 MG Ipratropium [place] 0.5 mg Q6HR NEB 01/27/24 12:00 02/02/24 06:05 0.5 MG Morphine Sulfate 1 mg Q4HP PRN IV 01/27/24 10:30 01/31/24 02:48 1 MG Lorazepam 0.5 mg Q8HP PRN IV 01/28/24 14:15 02/01/24 09:05 0.5 MG Azithromycin 500 mg DAILY PO 01/29/24 10:00 02/02/24 09:34 500 MG Ceftriaxone Sodium 50 ml @ 100 mls/hr DAILY@09 IV 01/28/24 15:39 02/02/24 09:34 100 MLS/HR Enteral Nutritional Formula 240 ml BIDWM PO 01/28/24 18:00 02/02/24 09:35 240 ML Prednisone 40 mg DAILY PO 02/02/24 10:00 02/02/24 09:34 40 MG Dextrose/Sodium Chloride 1,000 ml @ 50 mls/hr Q20H IV 02/01/24 10:30 02/02/24 06:00 50 MLS/HR Zirconium Oxide 10 gm Q8HR PO 02/01/24 14:00 02/02/24 05:52 10 GM Examination: GENERAL:Normal, HEENT:Normal, NECK:Normal, LUNGS:Normal, LUNGS:Abnormal (ON OXYGEN, DECREASED BILATERALLY), CVS:Normal, ABDOMEN:Normal, MSK:Normal, SKIN:Normal, NEURO:Normal, :Normal laboratory and microbiology Laboratory Tests 02/02/24 04:52 Test 02/02/24 04:52 Range/Units Serum Glucose 169 H 74-106 mg/dL Problem List/Assessment/Plan Problem List/Assessment/Plan #1 acute resp failure: cont bipap, abg #2 copd with exacerbation: cont steroids #3 ?pneumonia: iv antibiotics #4 htn #6 acute on chronic systolic heart failure: dc lasix #7 h/o cad #8 nstemi ?type 2 #9 hyperlipidemia #10 hyperkalemia: lokelma #11 acute renal failure ?vasomotor nephropathy: dc ivf advance care planning- full code- time spent 21 mins Plan discussed with: Patient My Orders My Orders Orders - FARIBA GRADY MD Procedure Category Date Status Time Prednisone Tablet PHA 02/02/24 In Process 10:00 D5w/Sod Chl 0.45% PHA 02/01/24 In Process (D5w 1/2ns) 10:30 Sodium Zirconium PHA 02/01/24 In Process Cyclosilicate 14:00 Chest Portable XY 02/02/24 Resulted 06:00 Abg W/ Co-Ox RT 02/01/24 Logged 10:26 Dietary Evaluation Review Comments: 1. Continue Ensure HP BID 2. Continue current diet 3. Consider increase Ensure HP to TID if pt intake trends low Expected Outcomes/Goals: 1. Pt will consume >75% of estimated needs within 3-5 days Date of Service: Feb 02, 2024 Billing Provider: FARIBA GRADY MD Common Visit Codes: [id number] INP/OBS CARE(HIGH) FARIBA GRADY MD Feb 02, 2024 10:07
[2024-02-02] MEDS: POLYETHYLENE GLYCOL 17 GM PWDR PO ONE (12:04)
[2024-02-02] MEDS: LACTULOSE 20Gm/30ML SOLN PO ONE (12:04)
--- NOTE | 2024-02-02 12:53 | DVHPN2 ---
Progress Note - Dictate Date Seen: Feb 02, 2024 Medical Necessity Reason Pt with a Central, PICC or Fol: No Subjective Patient complains of shortness of breath worse than yesterday. vital signs Vital Sign Date Time Temp Pulse Resp B/P (MAP) Pulse Ox O2 Delivery O2 Flow Rate FiO2 02/02/24 12:10 114 20 100 02/02/24 09:38 2.0 02/02/24 09:00 97.5 131/83 (99) 97.5 02/02/24 07:30 Nasal Cannula* 32 Total Intake and Output 02/01/24 02/01/24 02/02/24 15:00 23:00 07:00 Intake Total 50 ml 990 ml 200 ml Output Total 725 ml 1100 ml Balance 50 ml 265 ml -900 ml medications Current Medications Medications Dose Ordered Sig/Gilbert Route Start Time Stop Time Status Last Admin Dose Admin Aspirin 81 mg DAILY PO 01/27/24 10:00 02/02/24 09:34 81 MG Atorvastatin Calcium 40 mg HS PO 01/27/24 22:00 02/01/24 21:45 40 MG Clopidogrel Bisulfate 75 mg DAILY PO 01/27/24 10:00 02/02/24 09:34 75 MG Ondansetron HCl 4 mg Q4HP PRN IV 01/27/24 03:30 Enoxaparin Sodium 40 mg DAILY SC 01/27/24 10:00 02/02/24 09:34 40 MG Acetaminophen 650 mg Q6HP PRN PO 01/27/24 03:30 Nitroglycerin 0.4 mg Q5MINP PRN SL 01/27/24 03:30 Morphine Sulfate 2 mg Q30M PRN IV 01/27/24 03:30 Levalbuterol HCl 1.25 mg Q6HR NEB 01/27/24 12:00 02/02/24 12:01 1.25 MG Ipratropium [place] 0.5 mg Q6HR NEB 01/27/24 12:00 02/02/24 12:01 0.5 MG Morphine Sulfate 1 mg Q4HP PRN IV 01/27/24 10:30 01/31/24 02:48 1 MG Lorazepam 0.5 mg Q8HP PRN IV 01/28/24 14:15 02/01/24 09:05 0.5 MG Azithromycin 500 mg DAILY PO 01/29/24 10:00 02/02/24 09:34 500 MG Ceftriaxone Sodium 50 ml @ 100 mls/hr DAILY@09 IV 01/28/24 15:39 02/02/24 09:34 100 MLS/HR Enteral Nutritional Formula 240 ml BIDWM PO 01/28/24 18:00 02/02/24 09:35 240 ML Prednisone 40 mg DAILY PO 02/02/24 10:00 02/02/24 09:34 40 MG objective HEENT: No evidence of JVD, no oral ulcers. In no distress, sleeping. Pulmonary: Crackles and rales on auscultation bilaterally Cardiovascular S1-S2, no S3 or S4 Abdomen: Bowel sounds positive, soft no rebound tenderness Skin: No rash Neurological: Alert, oriented, no focal weakness Diminished muscle mass noticed. laboratory and microbiology Laboratory Tests 02/02/24 04:52 Test 02/02/24 04:52 Range/Units Serum Glucose 169 H 74-106 mg/dL Assessment/Plan Assessment: Acute kidney injury on CKD stage 3 a multifactorial including cardiorenal syndrome and hypertensive nephrosclerosis. Hyperkalemia, improved Alkalemia, likely compensating for chronic hypercarbia Acute on chronic systolic heart failure History of coronary artery disease status post PCI COPD exacerbation Chronic hypercapnic respiratory failure Hypertension Hyperlipidemia Constipation Plan/Recommendation Lasix IV 20 mg x 1 in view of the respiratory distress P.r.n. loop diuretic Continue Lokelma or Veltassa every other day Continue lactulose and MiraLax as needed for constipation Low-potassium diet We will follow up on the labs. Continue with med nebs and IV Solu-Medrol Thank you very much for allowing us to participate in the care of this patient. Dietary Evaluation Review Comments: 1. Continue Ensure HP BID 2. Continue current diet 3. Consider increase Ensure HP to TID if pt intake trends low Expected Outcomes/Goals: 1. Pt will consume >75% of estimated needs within 3-5 days Plan discussed with: Patient HERMINIO DORMAN MD Feb 02, 2024 12:53
[2024-02-02] MEDS: FUROSEMIDE 20 MG/2 ML VIAL IV ONE (13:05)
[2024-02-03] VITALS (16 sets, daily range): BP systolic 100–137; BP diastolic 57–86; PULSE 104–119; RESP 18–24; TEMP 97.3–97.7; O2SAT 91–100
[2024-02-03 06:32] LABS: Basophils # (auto) 0 10 ^3/uL (0-0.2); Eosinophils # (auto) 0 10 ^3/uL (0-0.8); Eosinophils % (auto) 0.1 % (0.0-7.0); Lymphocytes # (auto) 0.4 10 ^3/uL (0.4-5.4); Monocytes # (auto) 0.9 10 ^3/uL (0-1.3)
[2024-02-03 06:35] LABS: Hematocrit 43.7 % (41.0-53.0); Hemoglobin 14.8 g/dL (13.5-17.5); Lymphocytes % (auto) 5.3 % (10.0-50.0); Mean Corpuscular Hemoglobin 34.2 pg (28.0-32.0); Mean Corpuscular Hgb Conc. 33.8 g/dL (32.0-36.0); Mean Corpuscular Volume 101.2 fL (80.0-100.0); Monocytes % (auto) 11.3 % (0.0-12.0); Neutrophils # (auto) 6.6 10 ^3/uL (1.6-8.6); Neutrophils % (auto) 83.3 % (37.0-80.0); Nucleated Red Blood Cells % 0.1 %; Platelet Count (auto) 152 10^3/uL (140-450); Red Blood Cells 4.32 10^6/uL (4.5-5.90); Red Cell Distribution Width 13.2 % (11.8-14.3)
[2024-02-03 06:46] LABS: Potassium 4.8 mmol/L (3.5-5.1); Sodium 144 mmol/L (136-145)
[2024-02-03 06:52] LABS: BUN/Creatinine Ratio 51.4 (10.0-20.0)
[2024-02-03 06:54] LABS: Anion Gap 6.99999 (5-15); Blood Urea Nitrogen 57 mg/dL (9-23); Chloride 97 mmol/L (98-107); Glucose 120 mg/dL (74-106)
[2024-02-03 06:57] LABS: Carbon Dioxide > 40 mmol/L (20-31)
--- NOTE | 2024-02-03 09:54 | DVHPN2 ---
Progress Note Date Seen: Feb 03, 2024 Medical Necessity Reason Pt with a Central, PICC or Fol: No Subjective Patient reports: No new complaints Review of Systems: HEENT:Normal, CVS:Normal, RESPIRATORY:Normal, GI:Normal, :Normal, MSK:Normal, NEURO:Normal Objective vital signs Vital Sign Date Time Temp Pulse Resp B/P (MAP) Pulse Ox O2 Delivery O2 Flow Rate FiO2 02/03/24 08:05 20 96 Nasal Cannula* 4 36 02/03/24 06:16 107 02/03/24 05:00 97.7 118/57 (77) 97.7 Total Intake and Output 02/02/24 02/02/24 02/03/24 15:00 23:00 07:00 Intake Total 175 ml 650 ml 630 ml Output Total 800 ml Balance 175 ml 650 ml -170 ml medications Current Medications Medications Dose Ordered Sig/Gilbert Route Start Time Stop Time Status Last Admin Dose Admin Aspirin 81 mg DAILY PO 01/27/24 10:00 02/03/24 08:51 81 MG Atorvastatin Calcium 40 mg HS PO 01/27/24 22:00 02/02/24 21:53 40 MG Clopidogrel Bisulfate 75 mg DAILY PO 01/27/24 10:00 02/03/24 08:51 75 MG Ondansetron HCl 4 mg Q4HP PRN IV 01/27/24 03:30 Enoxaparin Sodium 40 mg DAILY SC 01/27/24 10:00 02/02/24 09:34 40 MG Acetaminophen 650 mg Q6HP PRN PO 01/27/24 03:30 Nitroglycerin 0.4 mg Q5MINP PRN SL 01/27/24 03:30 Morphine Sulfate 2 mg Q30M PRN IV 01/27/24 03:30 Levalbuterol HCl 1.25 mg Q6HR NEB 01/27/24 12:00 02/03/24 06:10 1.25 MG Ipratropium [place] 0.5 mg Q6HR NEB 01/27/24 12:00 02/03/24 06:10 0.5 MG Morphine Sulfate 1 mg Q4HP PRN IV 01/27/24 10:30 01/31/24 02:48 1 MG Lorazepam 0.5 mg Q8HP PRN IV 01/28/24 14:15 02/01/24 09:05 0.5 MG Azithromycin 500 mg DAILY PO 01/29/24 10:00 02/03/24 08:51 500 MG Ceftriaxone Sodium 50 ml @ 100 mls/hr DAILY@09 IV 01/28/24 15:39 02/03/24 08:50 100 MLS/HR Enteral Nutritional Formula 240 ml BIDWM PO 01/28/24 18:00 02/03/24 08:00 240 ML Prednisone 40 mg DAILY PO 02/02/24 10:00 02/03/24 08:50 40 MG Examination: GENERAL:Normal, HEENT:Normal, NECK:Normal, LUNGS:Normal, LUNGS:Abnormal (on oxygen, decreased bilaterally), CVS:Normal, ABDOMEN:Normal, MSK:Normal, SKIN:Normal, NEURO:Normal, :Normal laboratory and microbiology Laboratory Tests 02/03/24 05:15 Test 02/03/24 05:15 Range/Units Serum Glucose 120 H 74-106 mg/dL Problem List/Assessment/Plan Problem List/Assessment/Plan #1 acute resp failure: cont bipap, abg #2 copd with exacerbation: cont steroids #3 ?pneumonia: iv antibiotics #4 htn #6 acute on chronic systolic heart failure: dc lasix #7 h/o cad #8 nstemi ?type 2 #9 hyperlipidemia #10 hyperkalemia: lokelma #11 acute renal failure ?vasomotor nephropathy: dc ivf #12 back pain will arrange family meeting advance care planning- full code- time spent 21 mins Plan discussed with: Patient My Orders My Orders Orders - FARIBA GRADY MD Procedure Category Date Status Time * [employer] Admissions Representative CONS 02/02/24 Transmitted Consult * [employer] Admissions Representative CONS 02/02/24 Transmitted Consult Lisinopril Tablet PHA 02/03/24 Verified (Zestril Tablet) 10:00 Hydrocodone-Acet PHA 02/03/24 Verified 5/325mg Tab ([place] 10:00 Dietary Evaluation Review Comments: 1. Continue Ensure HP BID 2. Continue current diet 3. Consider increase Ensure HP to TID if pt intake trends low Expected Outcomes/Goals: 1. Pt will consume >75% of estimated needs within 3-5 days Date of Service: Feb 03, 2024 Billing Provider: FARIBA GRADY MD Common Visit Codes: [id number] INP/OBS CARE(HIGH) FARIBA GRADY MD Feb 03, 2024 09:54
[2024-02-03] MEDS: HYDROcodone-ACET 5/325MG TAB PO PRN (11:02)
[2024-02-03] MEDS: LISINOPRIL 5 MG TAB PO SCH (11:02)
--- NOTE | 2024-02-03 12:08 | DVHPN2 ---
Progress Note - Dictate Date Seen: Feb 03, 2024 Medical Necessity Reason Pt with a Central, PICC or Fol: No Subjective Shortness of breath improved compared to yesterday nonetheless continues to have difficulty breathing which is hindering his ability to eat and swallow. vital signs Vital Sign Date Time Temp Pulse Resp B/P (MAP) Pulse Ox O2 Delivery O2 Flow Rate FiO2 02/03/24 11:02 133/86 02/03/24 09:00 97.4 117 21 91 97.4 02/03/24 08:05 Nasal Cannula* 4 36 Total Intake and Output 02/02/24 02/02/24 02/03/24 15:00 23:00 07:00 Intake Total 175 ml 650 ml 630 ml Output Total 800 ml Balance 175 ml 650 ml -170 ml medications Current Medications Medications Dose Ordered Sig/Gilbert Route Start Time Stop Time Status Last Admin Dose Admin Aspirin 81 mg DAILY PO 01/27/24 10:00 02/03/24 08:51 81 MG Atorvastatin Calcium 40 mg HS PO 01/27/24 22:00 02/02/24 21:53 40 MG Clopidogrel Bisulfate 75 mg DAILY PO 01/27/24 10:00 02/03/24 08:51 75 MG Ondansetron HCl 4 mg Q4HP PRN IV 01/27/24 03:30 Enoxaparin Sodium 40 mg DAILY SC 01/27/24 10:00 02/03/24 10:00 40 MG Acetaminophen 650 mg Q6HP PRN PO 01/27/24 03:30 Nitroglycerin 0.4 mg Q5MINP PRN SL 01/27/24 03:30 Morphine Sulfate 2 mg Q30M PRN IV 01/27/24 03:30 Levalbuterol HCl 1.25 mg Q6HR NEB 01/27/24 12:00 02/03/24 06:10 1.25 MG Ipratropium [place] 0.5 mg Q6HR NEB 01/27/24 12:00 02/03/24 06:10 0.5 MG Morphine Sulfate 1 mg Q4HP PRN IV 01/27/24 10:30 01/31/24 02:48 1 MG Lorazepam 0.5 mg Q8HP PRN IV 01/28/24 14:15 02/01/24 09:05 0.5 MG Azithromycin 500 mg DAILY PO 01/29/24 10:00 02/03/24 08:51 500 MG Ceftriaxone Sodium 50 ml @ 100 mls/hr DAILY@09 IV 01/28/24 15:39 02/03/24 08:50 100 MLS/HR Enteral Nutritional Formula 240 ml BIDWM PO 01/28/24 18:00 02/03/24 08:00 240 ML Prednisone 40 mg DAILY PO 02/02/24 10:00 02/03/24 08:50 40 MG Lisinopril 2.5 mg DAILY PO 02/03/24 10:00 02/03/24 11:02 2.5 MG Acetaminophen/ Hydrocodone [place] 1 tab Q6HPRN PRN PO 02/03/24 10:00 02/03/24 11:02 1 TAB objective HEENT: No evidence of JVD, no oral ulcers. In no distress, sleeping. Pulmonary: Diminished crackles on auscultation bilaterally Cardiovascular S1-S2, no S3 or S4 Abdomen: Bowel sounds positive, soft no rebound tenderness Skin: No rash Neurological: Alert, oriented, no focal weakness Diminished muscle mass noticed. laboratory and microbiology Laboratory Tests 02/03/24 05:15 Test 02/03/24 05:15 Range/Units Serum Glucose 120 H 74-106 mg/dL Assessment/Plan Assessment: Acute kidney injury on CKD stage 3 a multifactorial including cardiorenal syndrome and hypertensive nephrosclerosis. Hyperkalemia, improved Alkalemia, likely compensating for chronic hypercarbia Acute on chronic systolic heart failure History of coronary artery disease status post PCI COPD exacerbation Chronic hypercapnic respiratory failure Hypertension Cachexia Hyperlipidemia Constipation Plan/Recommendation Lasix IV 20 mg x 1 again Continue Lokelma or Veltassa every other day Continue lactulose and MiraLax as needed for constipation Low-potassium diet We will follow up on the labs. Continue with med nebs and IV Solu-Medrol Guarded prognosis Thank you very much for allowing us to participate in the care of this patient. Dietary Evaluation Review Comments: 1. Continue Ensure HP BID 2. Continue current diet 3. Consider increase Ensure HP to TID if pt intake trends low Expected Outcomes/Goals: 1. Pt will consume >75% of estimated needs within 3-5 days Plan discussed with: Patient HERMINIO DORMAN MD Feb 03, 2024 12:08
[2024-02-03] MEDS: FUROSEMIDE 20 MG/2 ML VIAL IV ONE (17:45)
[2024-02-04] VITALS (15 sets, daily range): BP systolic 104–142; BP diastolic 62–115; PULSE 42–129; RESP 12–24; TEMP 97.6–98.6; O2SAT 83–100
--- NOTE | 2024-02-04 10:29 | DVHPN2 ---
Progress Note Date Seen: Feb 04, 2024 Medical Necessity Reason Pt with a Central, PICC or Fol: No Subjective Patient reports: No new complaints Review of Systems: HEENT:Normal, CVS:Normal, RESPIRATORY:Normal, GI:Normal, :Normal, MSK:Normal, NEURO:Normal Objective vital signs Vital Sign Date Time Temp Pulse Resp B/P (MAP) Pulse Ox O2 Delivery O2 Flow Rate FiO2 02/04/24 08:41 98.6 57 18 115/70 (85) 91 98.6 02/04/24 08:00 Non-Rebreather 15 N/A Total Intake and Output 02/03/24 02/03/24 02/04/24 15:00 23:00 07:00 Intake Total 50 ml 650 ml 588 ml Output Total 300 ml 250 ml Balance 50 ml 350 ml 338 ml medications Current Medications Medications Dose Ordered Sig/Gilbert Route Start Time Stop Time Status Last Admin Dose Admin Aspirin 81 mg DAILY PO 01/27/24 10:00 02/03/24 08:51 81 MG Atorvastatin Calcium 40 mg HS PO 01/27/24 22:00 02/03/24 21:53 40 MG Clopidogrel Bisulfate 75 mg DAILY PO 01/27/24 10:00 02/03/24 08:51 75 MG Ondansetron HCl 4 mg Q4HP PRN IV 01/27/24 03:30 Enoxaparin Sodium 40 mg DAILY SC 01/27/24 10:00 02/03/24 10:00 40 MG Acetaminophen 650 mg Q6HP PRN PO 01/27/24 03:30 Nitroglycerin 0.4 mg Q5MINP PRN SL 01/27/24 03:30 Morphine Sulfate 2 mg Q30M PRN IV 01/27/24 03:30 Levalbuterol HCl 1.25 mg Q6HR NEB 01/27/24 12:00 02/04/24 06:23 1.25 MG Ipratropium [place] 0.5 mg Q6HR NEB 01/27/24 12:00 02/04/24 06:23 0.5 MG Morphine Sulfate 1 mg Q4HP PRN IV 01/27/24 10:30 01/31/24 02:48 1 MG Lorazepam 0.5 mg Q8HP PRN IV 01/28/24 14:15 02/01/24 09:05 0.5 MG Azithromycin 500 mg DAILY PO 01/29/24 10:00 02/03/24 08:51 500 MG Ceftriaxone Sodium 50 ml @ 100 mls/hr DAILY@09 IV 01/28/24 15:39 02/04/24 09:35 100 MLS/HR Enteral Nutritional Formula 240 ml BIDWM PO 01/28/24 18:00 02/03/24 17:45 240 ML Prednisone 40 mg DAILY PO 02/02/24 10:00 02/04/24 07:59 40 MG Lisinopril 2.5 mg DAILY PO 02/03/24 10:00 02/03/24 11:02 2.5 MG Acetaminophen/ Hydrocodone Bitart 1 tab Q6HPRN PRN PO 02/03/24 10:00 02/04/24 07:59 1 TAB Examination: GENERAL:Normal, HEENT:Normal, NECK:Normal, LUNGS:Normal, LUNGS:Abnormal (on oxygen), CVS:Normal, ABDOMEN:Normal, MSK:Normal, SKIN:Normal, NEURO:Normal, :Normal laboratory and microbiology Laboratory Tests 02/03/24 05:15 Test 02/03/24 05:15 Range/Units Serum Glucose 120 H 74-106 mg/dL Problem List/Assessment/Plan Problem List/Assessment/Plan #1 acute resp failure: cont bipap, abg #2 copd with exacerbation: cont steroids #3 ?pneumonia: iv antibiotics #4 htn #6 acute on chronic systolic heart failure: dc lasix #7 h/o cad #8 nstemi ?type 2 #9 hyperlipidemia #10 hyperkalemia: lokelma #11 acute renal failure ?vasomotor nephropathy: dc ivf #12 back pain family meeting today advance care planning- full code- time spent 21 mins Plan discussed with: Patient, Spouse Dietary Evaluation Review Comments: 1. Continue Ensure HP BID 2. Continue current diet 3. Consider increase Ensure HP to TID if pt intake trends low Expected Outcomes/Goals: 1. Pt will consume >75% of estimated needs within 3-5 days Date of Service: Feb 04, 2024 Billing Provider: FARIBA GRADY MD Common Visit Codes: [id number] INP/OBS CARE(HIGH) FARIBA GRADY MD Feb 04, 2024 10:29
--- NOTE | 2024-02-04 16:23 | DVHPN2 ---
Progress Note - Dictate Date Seen: Feb 04, 2024 Medical Necessity Reason Pt with a Central, PICC or Fol: No Subjective Shortness of breath improved compared to yesterday nonetheless continues to have difficulty breathing which is hindering his ability to eat and swallow. vital signs Vital Sign Date Time Temp Pulse Resp B/P (MAP) Pulse Ox O2 Delivery O2 Flow Rate FiO2 02/04/24 12:32 97.9 111 15 136/64 (88) 91 97.9 02/04/24 08:00 Non-Rebreather 15 N/A Total Intake and Output 02/03/24 02/03/24 02/04/24 15:00 23:00 07:00 Intake Total 50 ml 650 ml 588 ml Output Total 300 ml 250 ml Balance 50 ml 350 ml 338 ml medications Current Medications Medications Dose Ordered Sig/Gilbert Route Start Time Stop Time Status Last Admin Dose Admin Aspirin 81 mg DAILY PO 01/27/24 10:00 02/03/24 08:51 81 MG Atorvastatin Calcium 40 mg HS PO 01/27/24 22:00 02/03/24 21:53 40 MG Clopidogrel Bisulfate 75 mg DAILY PO 01/27/24 10:00 02/03/24 08:51 75 MG Ondansetron HCl 4 mg Q4HP PRN IV 01/27/24 03:30 Enoxaparin Sodium 40 mg DAILY SC 01/27/24 10:00 02/03/24 10:00 40 MG Acetaminophen 650 mg Q6HP PRN PO 01/27/24 03:30 Nitroglycerin 0.4 mg Q5MINP PRN SL 01/27/24 03:30 Morphine Sulfate 2 mg Q30M PRN IV 01/27/24 03:30 Levalbuterol HCl 1.25 mg Q6HR NEB 01/27/24 12:00 02/04/24 11:14 1.25 MG Ipratropium [place] 0.5 mg Q6HR NEB 01/27/24 12:00 02/04/24 11:14 0.5 MG Morphine Sulfate 1 mg Q4HP PRN IV 01/27/24 10:30 01/31/24 02:48 1 MG Lorazepam 0.5 mg Q8HP PRN IV 01/28/24 14:15 02/04/24 15:50 0.5 MG Azithromycin 500 mg DAILY PO 01/29/24 10:00 02/03/24 08:51 500 MG Enteral Nutritional Formula 240 ml BIDWM PO 01/28/24 18:00 02/03/24 17:45 240 ML Prednisone 40 mg DAILY PO 02/02/24 10:00 02/04/24 07:59 40 MG Lisinopril 2.5 mg DAILY PO 02/03/24 10:00 02/03/24 11:02 2.5 MG Acetaminophen/ Hydrocodone Bitart 1 tab Q6HPRN PRN PO 02/03/24 10:00 02/04/24 07:59 1 TAB objective HEENT: No evidence of JVD, no oral ulcers. In no distress, sleeping. Pulmonary: Diminished crackles on auscultation bilaterally Cardiovascular S1-S2, no S3 or S4 Abdomen: Bowel sounds positive, soft no rebound tenderness Skin: No rash Neurological: Alert, oriented, no focal weakness Diminished muscle mass noticed. laboratory and microbiology Laboratory Tests 02/03/24 05:15 Test 02/03/24 05:15 Range/Units Serum Glucose 120 H 74-106 mg/dL Assessment/Plan Assessment: Acute kidney injury on CKD stage 3 a multifactorial including cardiorenal syndrome and hypertensive nephrosclerosis. Hyperkalemia, improved Alkalemia, likely compensating for chronic hypercarbia Acute on chronic systolic heart failure History of coronary artery disease status post PCI COPD exacerbation Chronic hypercapnic respiratory failure Hypertension Cachexia Hyperlipidemia Constipation Plan/Recommendation Continue Lokelma every other day Continue lactulose and MiraLax as needed for constipation Low-potassium diet We will follow up on the labs. Continue with med nebs and IV Solu-Medrol Guarded prognosis Thank you very much for allowing us to participate in the care of this patient. Dietary Evaluation Review Comments: 1. Continue Ensure HP BID 2. Continue current diet 3. Consider increase Ensure HP to TID if pt intake trends low Expected Outcomes/Goals: 1. Pt will consume >75% of estimated needs within 3-5 days Plan discussed with: Patient HERMINIO DORMAN MD Feb 04, 2024 16:23
[2024-02-05] VITALS (14 sets, daily range): BP systolic 96–124; BP diastolic 60–84; PULSE 107–120; RESP 18–30; TEMP 97.6–98.7; O2SAT 90–98
--- NOTE | 2024-02-05 13:19 | DVHPN2 ---
Progress Note - Dictate Date Seen: Feb 05, 2024 Medical Necessity Reason Pt with a Central, PICC or Fol: No Subjective Dyspneic vital signs Vital Sign Date Time Temp Pulse Resp B/P (MAP) Pulse Ox O2 Delivery O2 Flow Rate FiO2 02/05/24 11:57 113 24 90 02/05/24 11:52 Oxymizer 5.0 02/05/24 11:52 N/A 02/05/24 08:49 115/73 02/05/24 05:00 97.7 97.7 Total Intake and Output 02/04/24 02/04/24 02/05/24 15:00 23:00 07:00 Intake Total 290 ml 300 ml 100 ml Output Total 600 ml 250 ml Balance 290 ml -300 ml -150 ml medications Current Medications Medications Dose Ordered Sig/Gilbert Route Start Time Stop Time Status Last Admin Dose Admin Aspirin 81 mg DAILY PO 01/27/24 10:00 02/03/24 08:51 81 MG Atorvastatin Calcium 40 mg HS PO 01/27/24 22:00 02/03/24 21:53 40 MG Clopidogrel Bisulfate 75 mg DAILY PO 01/27/24 10:00 02/03/24 08:51 75 MG Ondansetron HCl 4 mg Q4HP PRN IV 01/27/24 03:30 Enoxaparin Sodium 40 mg DAILY SC 01/27/24 10:00 02/03/24 10:00 40 MG Acetaminophen 650 mg Q6HP PRN PO 01/27/24 03:30 Nitroglycerin 0.4 mg Q5MINP PRN SL 01/27/24 03:30 Levalbuterol HCl 1.25 mg Q6HR NEB 01/27/24 12:00 02/05/24 11:52 1.25 MG Ipratropium [place] 0.5 mg Q6HR NEB 01/27/24 12:00 02/05/24 11:52 0.5 MG Morphine Sulfate 1 mg Q4HP PRN IV 01/27/24 10:30 01/31/24 02:48 1 MG Azithromycin 500 mg DAILY PO 01/29/24 10:00 02/03/24 08:51 500 MG Enteral Nutritional Formula 240 ml BIDWM PO 01/28/24 18:00 02/03/24 17:45 240 ML Prednisone 40 mg DAILY PO 02/02/24 10:00 02/04/24 07:59 40 MG Lisinopril 2.5 mg DAILY PO 02/03/24 10:00 02/03/24 11:02 2.5 MG Acetaminophen/ Hydrocodone Bitart 1 tab Q6HPRN PRN PO 02/03/24 10:00 02/04/24 07:59 1 TAB Lorazepam 0.5 mg Q4HPRN PRN IV 02/05/24 11:00 objective HEENT: No evidence of JVD, no oral ulcers. In no distress, sleeping. Pulmonary: Diminished crackles on auscultation bilaterally Cardiovascular S1-S2, no S3 or S4 Abdomen: Bowel sounds positive, soft no rebound tenderness Skin: No rash Neurological: Alert, oriented, no focal weakness Diminished muscle mass noticed. laboratory and microbiology Laboratory Tests 02/03/24 05:15 Test 02/03/24 05:15 Range/Units Serum Glucose 120 H 74-106 mg/dL Assessment/Plan Assessment: Acute kidney injury on CKD stage 3 a multifactorial including cardiorenal syndrome and hypertensive nephrosclerosis. Hyperkalemia, improved Alkalemia, likely compensating for chronic hypercarbia Acute on chronic systolic heart failure History of coronary artery disease status post PCI COPD exacerbation Chronic hypercapnic respiratory failure Hypertension Cachexia Hyperlipidemia Constipation Plan/Recommendation Continue Lokelma every other day Continue lactulose and MiraLax as needed for constipation Low-potassium diet We will follow up on the labs. Continue with med nebs and IV Solu-Medrol Guarded prognosis Going home with hospice Thank you very much for allowing us to participate in the care of this patient. Dietary Evaluation Review Comments: 1. Continue Ensure HP BID 2. Continue current diet 3. Consider increase Ensure HP to TID if pt intake trends low Expected Outcomes/Goals: 1. Pt will consume >75% of estimated needs within 3-5 days Plan discussed with: Patient HERMINIO DORMAN MD Feb 05, 2024 13:19
--- NOTE | 2024-02-05 13:48 | DVHDS2 ---
Discharge Summary Date of Admission Jan 27, 2024 at 03:34 Date of Discharge: Feb 05, 2024 Admitting Diagnosis Acute on chronic hypoxic respiratory failure Labs/Diagnostic Data: Laboratory Results Test 02/03/24 05:15 02/02/24 04:52 02/01/24 14:50 02/01/24 10:58 White Blood Count 8.0 10^3/uL (4.4-10.8) Red Blood Count 4.32 10^6/uL (4.5-5.90) Hemoglobin 14.8 g/dL (13.5-17.5) Hematocrit 43.7 % (41.0-53.0) Mean Corpuscular Volume 101.2 fL (80.0-100.0) Mean Corpuscular Hemoglobin 34.2 pg (28.0-32.0) Mean Corpuscular Hemoglobin Concent 33.8 g/dL (32.0-36.0) Red Cell Distribution Width 13.2 % (11.8-14.3) Platelet Count 152 10^3/uL (140-450) Mean Platelet Volume 9.0 fL (6.9-10.8) Neutrophils (%) (Auto) 83.3 % (37.0-80.0) Lymphocytes (%) (Auto) 5.3 % (10.0-50.0) Monocytes (%) (Auto) 11.3 % (0.0-12.0) Eosinophils (%) (Auto) 0.1 % (0.0-7.0) Basophils (%) (Auto) 0.0 % (0.0-2.0) Neutrophils # (Auto) 6.6 10 ^3/uL (1.6-8.6) Lymphocytes # (Auto) 0.4 10 ^3/uL (0.4-5.4) Monocytes # (Auto) 0.9 10 ^3/uL (0-1.3) Eosinophils # (Auto) 0 10 ^3/uL (0-0.8) Basophils # (Auto) 0 10 ^3/uL (0-0.2) Nucleated Red Blood Cells 0.1 % Sodium Level 144 mmol/L (136-145) Potassium Level 4.8 mmol/L (3.5-5.1) Chloride Level 97 mmol/L (98-107) Carbon Dioxide Level > 40 mmol/L (20-31) Anion Gap 6.11538 (5-15) Blood Urea Nitrogen 57 mg/dL (9-23) Creatinine 1.11 mg/dL (0.700-1.30) Glomerular Filtration Rate Calc 66 mL/min (>90) BUN/Creatinine Ratio 51.4 (10.0-20.0) Serum Glucose 120 mg/dL (74-106) Calcium Level 10.0 mg/dL (8.7-10.4) Total Bilirubin 0.4 mg/dL (0.2-1.0) Aspartate Amino Transferase (AST) 66 U/L (13-40) Alanine Aminotransferase (ALT) 59 U/L (7-40) Alkaline Phosphatase 86 U/L (46-116) Total Protein 6.0 g/dL (5.7-8.2) Albumin 3.6 g/dL (3.2-4.8) POC Glucose 266 mg/dl (70-106) Blood Gas Specimen Type Arterial Blood Gas Sample Site Right radial Blood Gas Patient Temperature 37.0 Arterial Blood Date Drawn [id number] Arterial Blood pH 7.384 (7.350-7.450) Arterial Blood Partial Pressure CO2 58.9 mmHg (35.0-48.0) Arterial Blood Partial Pressure O2 61.8 mmHg (83.0-108.0) Arterial Blood HCO3 34.4 mmol/L (21.0-28.0) Arterial Blood Oxygen Saturation 89.9 % (94.0-98.0) Arterial Blood Base Excess 7.3 mmol/L (-2.0-3.0) Arterial Blood Oxyhemoglobin 88.6 % (94.0-98.0) Arterial Blood Carboxyhemoglobin 1.2 % (0.5-1.5) Arterial Blood Methemoglobin 0.3 % (0.0-1.5) Shailesh Test Yes Blood Gas Total Hemoglobin 14.00 g/dL (13.5-17.5) Blood Gas Modality Nasal cannula FiO2 % 32.0 Test 01/31/24 02:25 01/29/24 05:45 01/28/24 10:00 01/27/24 20:20 Urine Color Light-yellow (Yellow) Urine Clarity Clear (Clear) Urine pH 5.0 (5.0-9.0) Urine Specific [place] 1.015 (1.001-1.035) Urine Protein Negative (Negative) Urine Ketones Negative (Negative) Urine Blood Negative /uL (Negative) Urine Nitrite Negative (Negative) Urine Bilirubin Negative (Negative) Urine Urobilinogen Normal mg/dL (Negative) Urine Leukocyte Esterase Negative /uL (Negative) Urine RBC 1 /hpf (0 - 3) Urine WBC <1 /hpf (0 - 3) Urine Squamous Epithelial Cells Few /hpf (<5) Urine Bacteria None seen /hpf (None Seen) Urine Glucose Normal mg/dL (Normal) Magnesium Level 2.4 mg/dL (1.6-2.6) Blood Gas Liter Flow 3.00 Blood Gas EPAP 5 Blood Gas IPAP 10 Test 01/27/24 15:38 01/27/24 12:57 01/27/24 02:38 01/27/24 00:37 Blood Gas Set Respiration Rate 16.0 Blood Gas Critical Value Read Back Yes Blood Gas Notified Whom Dr shan sweet Blood Gas Notified Time [id number] Blood Gas Notified By [employer] tyra hoyos Influenza Type A Antigen Negative (Negative) Influenza Type B Antigen Negative (Negative) SARS-CoV-2 Antigen (Rapid) Negative (NEGATIVE) Troponin I High Sensitivity 71 ng/L (</=54) Test 01/26/24 21:57 01/26/24 21:45 Blood Gas Spontaneous Rate 39 Blood Gas Spontaneous Tidal Volume 430 B-Type Natriuretic Peptide 257.59 pg/mL (0-100) Other Laboratory Tests 02/03/24 05:15 Brief Hx & Hospital Course: History of Present Illness 83-year-old male presents for evaluation of shortness for breath. Patient presents with a one day history of worsening shortness for breath not being relief with inhaler and nebulizer at. On arrival patient is saturating 81% room air. Patient was placed on BiPAP. No complaints of chest pain or palpitations. No fever or chills. Course of hospitalization: Patient was also found to be in acute kidney injury with hyperkalemia. Potassium lowering agents were administered with patient's potassium level normalizing. Nephrology consultation has been placed. Patient has been weaned off of BiPAP and is currently on Oxymizer 8 liters/minute. Long discussion was made with the family by primary hospitalist, Dr. Sweet, with the plan of care at the time of discharge to be placed on hospice. Patient will be discharged home per previous plan of care. Physical exam General: Alert and Oriented x3. No acute distress. Well-nourished. Cachexia Eyes: EOMI. Anicteric. HENT: Moist mucous membranes. Lungs: Respiratory distress with tachypnea and severely decreased breath sounds. Cardiovascular: Regular rate and rhythm. No murmur. No JVD. Abdomen: Soft, non-tender and non-distended. No palpable masses. Extremities: No edema. Non-tender. Skin: No rashes or lesions. Warm. Neurologic: No focal neurological deficits. CN II-XII grossly intact, but not individually tested. Psychiatric: Cooperative. Patient with anxiety secondary to dyspnea. Total time spent with patient discussing and formulating plan of care: 35 minutes. This medical document was created using an electronic medical record system with [employer] dictation system. Although this document has been carefully reviewed, there may still be some phonetic and typographical errors. These areas are purely typographical due to imperfections of the software programs, and do not reflect any compromise in the patient's medical care. Consults/Reason for consult Nephrology: Hyperkalemia, acute kidney injury Condition at Discharge: Poor Final Diagnosis/Problems List copd Secondary Diagnosis: #1 acute resp failure #2 copd with exacerbation #3 ?pneumonia #4 htn #6 acute on chronic systolic heart failure #7 h/o cad #8 nstemi ?type 2 secondary to respiratory failure #9 hyperlipidemia #10 hyperkalemia #11 acute renal failure #12 back pain Discharge Disposition: Hospice - Home Discharge Instruct/Medications Diet: Cardiac 2g Na,low cholest Activity: No Restrictions, As Tolerated Follow Up/Referral: fu with hospice Medications: per hospice 36 Discharge Statement: "Patient was advised to return to the ER or call 911 if any headaches, dizziness, shortness of breath, chest pain, abdominal pain, bleeding, fevers, or worsening of medical condition. Patient was counseled about treatment plan, medications, possible side effects, patientverbalized understanding. All questions were answered to the best of my ability. This discharge took greater then 30 minutes in planning, reviewing documentation, counseling the patient, and discussing with other team members." ASSESSMENT ASSESSMENT Assessment copd Date of Service: Feb 05, 2024 Billing Provider: SHIV KAUR NP Common Visit Codes: 68730-ODB/OBS DISCH DAY >30min SHIV KAUR NP Feb 05, 2024 13:48
[2024-02-05] MEDS: LORazepam 2MG/ML-1ML VIAL IV PRN (14:30)
== END 2024-02-05 19:20 | disposition hospice, home (50) | DRG 280 ==
LOC: ER 21:16 → EDBD 21:16 → TELE 01-27 03:34 → TELE-WESTW 01-27 22:28 → TELE-CENTR 01-30 04:05
PROVIDERS: ADMIT Nurse Practitioner; ATTEND Nurse Practitioner Acute Care
PROC: 5A09357 Assistance with Respiratory Ventilation, Less than 24 Consecutive Hours, Continuous Positive Airway Pressure (ICD-10-PCS; principal; 2024-01-26)
PROC: 5A09357 Assistance with Respiratory Ventilation, Less than 24 Consecutive Hours, Continuous Positive Airway Pressure (ICD-10-PCS; 2024-01-27)
PROC: 5A09357 Assistance with Respiratory Ventilation, Less than 24 Consecutive Hours, Continuous Positive Airway Pressure (ICD-10-PCS; 2024-01-29)
PROC: 5A09357 Assistance with Respiratory Ventilation, Less than 24 Consecutive Hours, Continuous Positive Airway Pressure (ICD-10-PCS; 2024-01-30)
DX: I13.0 Hypertensive heart and chronic kidney disease with heart failure and stage 1 through stage 4 chronic kidney disease, or unspecified chronic kidney disease (principal); I50.23 Acute on chronic systolic (congestive) heart failure; I21.A1 Myocardial infarction type 2; J96.21 Acute and chronic respiratory failure with hypoxia; J96.22 Acute and chronic respiratory failure with hypercapnia; J15.69 Pneumonia due to other Gram-negative bacteria; J15.9 Unspecified bacterial pneumonia; E87.3 Alkalosis; J44.1 Chronic obstructive pulmonary disease with (acute) exacerbation; N17.9 Acute kidney failure, unspecified; R64 Cachexia; J44.0 Chronic obstructive pulmonary disease with (acute) lower respiratory infection; Z66 Do not resuscitate; Z20.822 Contact with and (suspected) exposure to COVID-19; Z51.5 Encounter for palliative care; N18.31 Chronic kidney disease, stage 3a; E87.5 Hyperkalemia; E78.5 Hyperlipidemia, unspecified; I25.10 Atherosclerotic heart disease of native coronary artery without angina pectoris; D69.6 Thrombocytopenia, unspecified; K59.00 Constipation, unspecified; F06.4 Anxiety disorder due to known physiological condition; J43.9 Emphysema, unspecified; Z87.442 Personal history of urinary calculi; Z82.49 Family history of ischemic heart disease and other diseases of the circulatory system; Z98.61 Coronary angioplasty status; Z68.29 Body mass index [BMI] 29.0-29.9, adult
CPT/HCPCS: 36415; 36600; 71045; 76775; 80048; 80053; 81001; 82805; 82962; 83735; 83880; 84132; 84484; 85025; 87426; 87804; 93005; 93306; 94640; 94660; 96365; 96375; 97110; 97116; 97162; 97530; 99291; G0378; J1815; J2405